=== PATIENT | female | born 1995 | race Caucasian/White ===

== ENCOUNTER 2019-10-18 16:14 | Outpatient (REF) | payer OTHER, SELFPAY ==
[2019-10-18 18:12] LABS: *AMPHETAMINES SCREEN URINE Negative (Negative); *BARBITURATES SCREEN URINE Negative (Negative); *BENZODIAZEPINES SCREEN URINE Negative (Negative); Cannabinoids THC Negative (Negative); Cocaine Screen,Urine Negative (Negative); METHADONE URINE SCREEN Negative (Negative); OPIATES URINE SCREEN Negative (Negative)
[2019-10-18 18:16] LABS: Tricyclic Antidepressants Negative (Negative)
[2019-10-23 10:58] LABS: Buprenorphine Negative
== END 2019-10-18 16:34 ==
LOC: LBN 16:14
PROVIDERS: Visit Provider Obstetrics & Gynecology
DX: Z34.92 Encounter for supervision of normal pregnancy, unspecified, second trimester (principal)
CPT/HCPCS: 80307

== ENCOUNTER 2019-10-24 02:44 | Outpatient (CLI) | payer OTHER, SELFPAY ==
--- NOTE | 2019-10-24 10:56 | DI.US_ITS ---
EXAM: US OB 2-3 TRIMESTER US OB 2-3 TRIMESTER CLINICAL HISTORY: anatomy and review of dates, late care Z34.90 SUPERVISION NORMAL P. anatomy and review of dates, late care Z34.90 SUPERVISION NORMAL P TECHNIQUE: Transabdominal obstetrical ultrasound performed. COMPARISON: No exams were available for comparison FINDINGS: Transabdominal obstetrical ultrasound performed. FINDINGS: Number of fetuses: One. position: Vertex. heart rate: bpm. Placental grade: 2 Placental location: Posterior. No evidence of previa. BIOMETRIC DATA: BPD: 5.9cm HC: 21.4cm AC: 19.5cm FL: 4.0cm Cisterna Magna: 3.3 mm Cerebellum: 2.5 cm EFW: 620 grms 63% Composite Age: 24.5 EDC by US: 02/15/20 Heart Rate: 153BPM Amniotic fluid index: Amount of fluid is within normal limits. ANATOMICAL SURVEY: Four-chambered heart: Unremarkable. LVOT: Unremarkable. RVOT: Unremarkable. Left-sided stomach: Unremarkable. urinary bladder: Unremarkable. Bilateral kidneys: Unremarkable. Three-vessel cord: Unremarkable. Cord insertion: Unremarkable. Umbilical artery velocity: Unremarkable. Posterior fossa:Unremarkable. ventricles: Unremarkable. nose: Unremarkable. lips: Unremarkable. palate: Unremarkable. spine: Unremarkable. Two arms and two legs: Unremarkable. The fetus is in cephalic position. Placenta is anterior. The biometric measurements correspond to 2 3 weeks 0 days. This is consistent with predicted gestational age. No abnormalities are seen. The amount of amniotic fluid appears visually normal. IMPRESSION: survey is within normal limits. DATA REPOSITORY:
[2019-10-24 11:21] LABS: Abs Immature Grans 0.03 k/cumm (0.0-0.09); Absolute Eosinophil Count 0.15 k/cumm (0.0-0.7); Absolute Lymphocyte Count 2.25 k/cumm (1.2-3.4); Absolute Monocyte Count 0.74 k/cumm (0.11-0.7); Absolute Neutrophil Count 8.23 k/cumm (1.2-6.7); Basophils % 0.3; Eosinophils % 1.3; HCT 34.3 % (36.0-46.0); HGB 11.5 g/dL (12.0-15.5); Immature Grans % 0.3 %; Lymphocytes % 19.7; Mean Corp. HGB Concentration 33.5 g/dL (32.0-36.0); Mean Corpuscular Hemoglobin 29.6 pg (27.0-33.0); Mean Corpuscular Volume 88.4 fL (80-95); Mean Platelet Volume 11.3 fL (8.0-11.0); Monocytes % 6.5; Neutrophils % 71.9; Platelet Count 257 x1000/uL (130-400); RBC 3.88 m/cumm (4.00-5.20); RBC Distribution Width 12.8 % (11.7-14.6); White Blood Cell Count 11.44 k/cumm (4.4-10.8)
[2019-10-24 11:23] LABS: Absolute Basophil Count 0.03 k/cumm (0.0-0.2)
[2019-10-24 12:35] LABS: TSH (W/Ref FT4) 2.01 uIU/mL (0.36-3.74)
[2019-10-25 10:33] LABS: Hepatitis C Ab w Rflx HCV PCR Negative (Negative)
[2019-10-25 10:38] LABS: Hepatitis B Surface Ag Negative (Negative)
[2019-10-25 10:40] LABS: HIV-1/2 Ag & Ab Screen Negative (Negative)
[2019-10-25 11:08] LABS: Syphilis Serology (RPR) Negative (Negative)
[2019-10-25 11:31] LABS: Varicella IgG Antibody Positive (See Note)
[2019-10-25 13:58] LABS: Rubella IgG Ab (UVM) Positive (See Note)
== END 2019-10-24 03:04 ==
PROVIDERS: PCP Family Medicine; Visit Provider Obstetrics & Gynecology
DX: Z34.92 Encounter for supervision of normal pregnancy, unspecified, second trimester (principal); Z3A.23 23 weeks gestation of pregnancy
CPT/HCPCS: 36415; 80055; 86787; 86803; 86850; 86900; 86901; 87340; 87389; 76805; 84443; 86592; 86762

== ENCOUNTER 2019-11-15 10:21 | Outpatient (CLI) | payer OTHER, SELFPAY ==
[2019-11-15 11:02] LABS: Glucose,1 Hr (Glucola) 104 mg/dL (80-140)
== END 2019-11-15 10:41 ==
PROVIDERS: PCP Family Medicine; Visit Provider Obstetrics & Gynecology
DX: Z34.92 Encounter for supervision of normal pregnancy, unspecified, second trimester (principal)
CPT/HCPCS: 36415; 82950

== ENCOUNTER 2019-11-29 09:44 | Outpatient (REF) | payer OTHER, SELFPAY ==
--- NOTE | 2019-11-29 09:30 | PAPFT_PTH ---
PATIENT: Reshma Berry LOC: [facility] U#:[id number] AGE/SX: 24/F ROOM: RE11/29/[address]: Eveline Negrete : 1995 BED: DIS: 11/29/2019 SPEC #: [id number] RECD: 11/29/19 12:44 STATUS: KANDY REBernardo #: [id number] JOSEPH: 11/29/19 09:[address]: Eveline Negrete DEPT: [facility] Cytology RECD BY: Coleen Cross ENTERED: 11/29/19 12:44 SP TYPE: PAPFT OTHR DR: Les Vaca Tissues: 1 - CX/ENDOCX FOR PAP SMEARS Procedures: PAP THIN PREP/UVM Screening Comments: [id number]
[2019-12-02 12:47] LABS: Chlamydia Result Negative (Negative); GC Result Negative (Negative)
== END 2019-11-29 10:04 ==
LOC: LBN 09:44
PROVIDERS: PCP Family Medicine; Visit Provider Obstetrics & Gynecology Gynecology
DX: Z34.91 Encounter for supervision of normal pregnancy, unspecified, first trimester (principal); Z11.3 Encounter for screening for infections with a predominantly sexual mode of transmission; Z12.4 Encounter for screening for malignant neoplasm of cervix
CPT/HCPCS: 87491; 87591; 88142

== ENCOUNTER 2020-01-15 19:04 | Outpatient (REF) | payer OTHER, MEDICAID, SELFPAY ==
[2020-01-15 16:55] LABS: *AMPHETAMINES SCREEN URINE Negative (Negative); *BARBITURATES SCREEN URINE Negative (Negative); *BENZODIAZEPINES SCREEN URINE Negative (Negative); Cannabinoids THC Negative (Negative); Cocaine Screen,Urine Negative (Negative); METHADONE URINE SCREEN Negative (Negative); OPIATES URINE SCREEN Negative (Negative)
[2020-01-15 17:01] LABS: Tricyclic Antidepressants Negative (Negative)
[2020-01-23 07:15] LABS: Buprenorphine Negative
== END 2020-01-15 19:24 ==
LOC: LBN 19:04
PROVIDERS: PCP Family Medicine; Visit Provider Obstetrics & Gynecology
DX: Z34.93 Encounter for supervision of normal pregnancy, unspecified, third trimester (principal); Z3A.36 36 weeks gestation of pregnancy
CPT/HCPCS: 80307

== ENCOUNTER 2020-01-24 10:10 | Outpatient (CLI) | payer OTHER, MEDICAID, SELFPAY | END 2020-01-24 10:30 | PROVIDERS: PCP Family Medicine; Visit Provider Obstetrics & Gynecology | DX: Z34.93 Encounter for supervision of normal pregnancy, unspecified, third trimester (principal); Z36.85 Encounter for antenatal screening for Streptococcus B | CPT/HCPCS: 87081 ==

== ENCOUNTER 2020-02-18 08:33 | Outpatient (CLI) | payer OTHER, MEDICAID, SELFPAY | END 2020-02-18 08:53 | PROVIDERS: PCP Family Medicine; Visit Provider Obstetrics & Gynecology Gynecology | DX: O48.0 Post-term pregnancy (principal); Z3A.40 40 weeks gestation of pregnancy | CPT/HCPCS: 59025 ==

== ENCOUNTER 2020-02-21 09:26 | Outpatient (CLI) | payer OTHER, MEDICAID, SELFPAY ==
[2020-02-21 21:51] LABS: COVID-19 RT-PCR UVMMC Result Negative (Negative)
== END 2020-02-21 09:46 ==
PROVIDERS: PCP Family Medicine; Visit Provider Obstetrics & Gynecology
DX: Z11.59 Encounter for screening for other viral diseases (principal)
CPT/HCPCS: U0003

== ENCOUNTER 2020-02-22 07:21 | Inpatient (IN) | payer OTHER, MEDICAID, SELFPAY ==
[2020-02-22 08:21] LABS: HGB 12.7 g/dL (12.0-15.5); Mean Corp. HGB Concentration 34.3 g/dL (32.0-36.0); Mean Corpuscular Hemoglobin 29.6 pg (27.0-33.0); Mean Corpuscular Volume 86.2 fL (80-95); Mean Platelet Volume 12.3 fL (8.0-11.0); Platelet Count 236 x1000/uL (130-400); RBC 4.29 m/cumm (4.00-5.20); RBC Distribution Width 13.4 % (11.7-14.6); White Blood Cell Count 18.15 k/cumm (4.4-10.8)
[2020-02-22] MEDS: Oxytocin/Normal Saline 30 UNITS/500 ML BAG IV (09:30)
[2020-02-22] MEDS: Lactated Ringers 1,000 ML 125 ML IV (09:30)
[2020-02-22] MEDS: FentaNYL/ROPIvacaine 2 mcg/ml and 0.1% 200 ML CADD Cassette EP (11:10)
[2020-02-22] MEDS: Terbutaline 1 MG/ML VIAL (12:00)
[2020-02-22] MEDS: Lactated Ringers 250 ML 500 ML IV (12:00)
[2020-02-22 12:30] VITALS: BP 89/49
[2020-02-22] MEDS: ePHEDrine 50 MG/ML VIAL IVP ×2 (12:30→12:40)
[2020-02-22 12:40] VITALS: BP 113/45
[2020-02-22 13:00] VITALS: BP 103/52
[2020-02-22 13:10] VITALS: BP 128/65
[2020-02-22] MEDS: Sodium Citrate 30 ML CUP PO (16:00)
[2020-02-22] MEDS: AZITHROMYCIN 500 MG in Normal Saline 250 ML 250 MG IVPB (16:00)
[2020-02-22] MEDS: ceFAZolin 1 GM/50 ML BAG IVPB (16:18)
[2020-02-22] MEDS: Azithromycin 500 MG VIAL (16:25)
[2020-02-22] MEDS: Bupivacaine 0.25% Pres-Free 30 ML VIAL (17:08)
--- NOTE | 2020-02-22 18:22 | HPE_ITS ---
Assessment and Plan Assessment and plan (1) Post-dates : Status: Acute Assessment and plan: Plan to admit for induction of labor with postdates. The patient does appear to be in early labor on admission and we will augment with Pitocin. We discussed pain management options morning and the patient does desire an epidural later in the course of her labor. GBS is negative. COVID screening is negative as well. History of Present Illness History of Present Illness Chief Complaint: Postdates Narrative: 24-year-old G1, P0 at 41 weeks gestation was admitted for postdates induction of labor. The patient did present today with regular contractions which were mild. On initial examination her cervix was 4 cm in dilatation, based and -2 station. She denied leakage of fluid. has been uncomplicated today. Review of Systems All systems reviewed & are unremarkable except as noted in HPI and below PFSH Social History Smoking/Tobacco Use Status: Former Tobacco Use Tobacco: How many years used: 5 Quit status: considering quitting Second Hand Exposure: Yes Counseling given: provider counseling, support program and counseling >3 minutes Smoking risk assessment performed?: Yes Alcohol Intake: former Drug use: Never Household members: significant other, family and other Details: Allison x8 years. 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 Works [employer] part-time. Sexually active: Yes Do you think of yourself as: straight/heterosexual Helmet use: Yes Do you feel safe at home: No Do you feel safe in your relationship?: Yes Victim of physical abuse: No Victim of emotional abuse: No Victim of sexual abuse: No Additional Social history: Part-time job works at the [employer] of the [employer] is in [place] Female Reproductive History Menstrual Age of Menarche: 12 control method: other History History 1 Para 0 Hx # Term Pregnancies Multiple births Hx # Pregnancies Ectopic pregnancies AB induced Hx Number of Living Children AB spontaneous Meds Home Medications and Allergies Home Medications Medication Instructions Recorded Confirmed Type prenat.vits,nathanael,[id number] 2 tab PO DAILY tab 04/03/20 06/27/20 History Allergies Allergy/AdvReac Type Severity Reaction Status Date / Time No Known Allergies Allergy Verified 02/22/20 08:15 Exam Other: Cervix /2 Results Labs Result diagrams: 02/22/20 08:05 Labs: Laboratory Results - last 24 hr 02/22/20 02/22/20 08:05 08:05 WBC 18.15 H RBC 4.29 Hgb 12.7 Hct 37.0 MCV 86.2 MCH 29.6 MCHC 34.3 RDW 13.4 Plt Count 236 MPV 12.3 H Patient ABO/Rh A Positive Antibody Screen Negative Last Vital Signs BP 128/65 02/22/20 13:10 COVID-19 Screening In the past 14 days, have you traveled outside of [place]?: YES Recent travel in the [facility] within the last 14 days?: No Recent out of the country travel within the last 14 days?: No Exposure or possible exposure to illness during travel?: No
--- NOTE | 2020-02-22 18:24 | PGE_ITS ---
Date of Service Date of service: 02/22/20 Time of Service: 18:24 Assessment and Plan Assessment and plan (1) Post-dates : Status: Acute (2) Non-reassuring heart rate or rhythm affecting management of fetus: Status: Acute (3) Arrested labor: Status: Acute Assessment and plan: The decision was made to proceed with section. The patient was counseled on risks related to surgery including hemorrhage, infection and injury to other organ such as bowel bladder. All que stions were answered to the patient's satisfaction and consent for surgery was obtained. Subjective Subjective Interval history since last seen: Late Entry Note The patient was admitted this morning for postdates induction of labor. The patient did present in early labor and was started on Pitocin augmentation. Her initial cervical exam was 4 cm in dilatation and 90% effaced on admission. Patient is urvashi and strong and painful once Pitocin was added. She was given an epidural for anesthesia. She did have some heart rate decelerations which were felt to be related to hypotension and was provided ephedrine. Intermittently she continued to have variable decelerations and pe riodically decelerations. She progressed rapidly from 4 cm to 9 cm and eventually complete cervical dilatation by 1340. At this time heart rate deceleration did continue. Pitocin had been discontinued earlier and the patient's contractions through most of the day were spontaneous. Amniotomy was performed at 12:39 PM and heart rate decelerations continued. Second stage with expulsive efforts began after complete cervical dilatation. The patient did progress to +1 station and heart rate decelerations continued. The decision was made to attempt a forceps assisted vaginal delivery. position was noted to be right occiput posterior. Given the first blade due to patient discomfort. Anesthesia was contacted and bedside a bolus to her epidural achieving better pain control. A second attempt at forceps was made at 1545 and I was unable to achieve a proper application and after several attempts at application forceps were abandoned. No traction attempts were made. Due to continued heart rate decelerations and lack of descent the patient was consented for section and taken to the operating room. Please refer to operative note for details. Objective Objective Clinical Data: Abnormal lab results 02/22/20 Range/Units 08:05 WBC 18.15 H (4.4-10.8) k/cumm MPV 12.3 H (8.0-11.0) fL Vital Signs Blood Pressure 128/65 02/22/20 13:10 Intake & Output 02/21/20 02/22/20 02/22/20 23:59 11:59 23:59 Intake Total 1300 / 1300 Output Total 800 / 800 Balance 500 / 500 Weight 219 lb Intake: IV 1300 / 1300 Output: Estimated Blood Loss 800 / 800 Laboratory Results WBC 18.15 k/cumm (4.4-10.8) H 02/22/20 08:05 RBC 4.29 m/cumm (4.00-5.20) 02/22/20 08:05 Hgb 12.7 g/dL (12.0-15.5) 02/22/20 08:05 Hct 37.0 % (36.0-46.0) 02/22/20 08:05 MCV 86.2 fL (80-95) 02/22/20 08:05 MCH 29.6 pg (27.0-33.0) 02/22/20 08:05 MCHC 34.3 g/dL (32.0-36.0) 02/22/20 08:05 RDW 13.4 % (11.7-14.6) 02/22/20 08:05 Plt Count 236 x1000/uL (130-400) 02/22/20 08:05 MPV 12.3 fL (8.0-11.0) H 02/22/20 08:05 Patient ABO/Rh A Positive 02/22/20 08:05 Antibody Screen Negative 02/22/20 08:05
[2020-02-22] MEDS: fentaNYL 100 MCG/2 ML VIAL (18:30)
--- NOTE | 2020-02-22 18:30 | ROE_ITS ---
Date of service: 02/22/20 Time of Service: 18:30 Operative Note Operative Note DATE OF PROCEDURE: 02/22/20 PRE-OP DIAGNOSIS: 1. 41 weeks gestation 2. Nonreassuring heart status 3. Arrest of descent POST-OP DIAGNOSIS: same PROCEDURE: Primary low transverse section SURGEON: Godfrey Lutz ANESTHESIA: epidural ESTIMATED BLOOD LOSS: 800 PATHOLOGY: none sent COMPLICATIONS: None Patient was transported to: floor Patient's condition: stable Findings: 1. LBM fetus in OP position. Difficult extraction Procedure Description: The patient was taken to the operating room and after adequate epidural anesthesia was obtained the patient had been placed in supine position with a left lateral tilt. The patient was prepped and draped in the usual sterile manner. A Pfannenstiel incision was made with a 10 blade scalpel and sharp dissection was carried down to the underlying layer fascia. The fascia was incised in the midline with a scalpel and the incision was carried laterally in either direction with Ferrer scissors. The superior and inferior aspects of the fascial ut incision were dissected off the underlying layer of rectus muscles using both blunt sharp dissection. The rectus muscles were divided in the midline along the linea alba peritoneum was entered bluntly. The peritoneal incision was extended superiorly and inferiorly with the Bovie cautery. The Sam retractor was placed with good visualization of the lower uterine segment. The vesicouterine flap was tented up with pickups and incised in the midline with Metzenbaum scissors and the incision was carried laterally in either direction with the Metzenbaum scissors. The bladder flap was then developed digitally. The lower uterine segment was incised in a transverse manner with a scalpel and the incision was carried laterally in either direction via stretch. The was found in cephalic presentation, occiput posterior position. The infant was in a resting position deep in the pelvis and extraction was difficult. Thick meconium stained fluid was noted. The was delivered atraumatically. The cord was clamped and cut and the was handed off to the awaiting marketing content manager. The placenta was manually extracted. The uterus was cleared of all clots and debris. The hysterotomy was closed with a running lock stitch of #1 chromic. A second beginning layer of #1 chromic in a Lambert stitch was used to complete the repair. Excellent hemostasis was noted. The vesicouterine flap was reapproximated with a running stitch of 3-0 Vicryl. The peritoneum was closed with a running stitch of 2-0 Vicryl. The subfascial space was thoroughly inspected and a single bleeder at the superior and midline end of the fascial dissection was ligated with a [id number] suture of 2-0 Vicryl. Excellent hemostasis was noted. The fascia was closed with a running stitch of 0 Vicryl. The subcutaneous tissues were closed with interrupted sutures of 3-0 Vicryl and the skin was closed with a running subcuticular stitch of 4-0 Monocryl. Dermabond was applied. The procedure was concluded at this point. Sponge, lap and needle counts were correct at the conclusion of the procedure. The patient was transferred to the floor in stable condition.
--- NOTE | 2020-02-22 18:40 | PDOC.ANES ---
Date of service: 02/22/20 Time of Service: 18:40 Anesthesia Note Report Anesthesia Note: Reshma is complaining of moderate to severe abdominal incisional burning/pain. Discussed with Dr. Lutz and decision made to give 2mg Morphine PF and 100mcg Fentanyl through her epidural catheter. This was completed and flushed with PF Saline. Narcan orders given for respiratory depression as well as pruritis. Epidural catheter then removed with blue tip intact. Pt. tolerated this well with no concerns. RN Will note dosing in MAR as given by anesthesia.
[2020-02-22] MEDS: diphenhydrAMINE 50 MG/ML VIAL (18:41)
[2020-02-22] MEDS: Normal Saline Flush 10 ML SYR (18:42)
[2020-02-22] MEDS: Ketorolac 30 MG/ML VIAL IVP (22:56)
[2020-02-23] MEDS: Lactated Ringers 1,000 ML 120 ML IV (00:02)
[2020-02-23] MEDS: Ketorolac 30 MG/ML VIAL IVP ×3 (04:52→21:15)
[2020-02-23 07:16] LABS: HGB 10.5 g/dL (12.0-15.5); Mean Corp. HGB Concentration 33.9 g/dL (32.0-36.0); Mean Corpuscular Hemoglobin 29.6 pg (27.0-33.0); Mean Corpuscular Volume 87.3 fL (80-95); Mean Platelet Volume 11.7 fL (8.0-11.0); Platelet Count 191 x1000/uL (130-400); RBC 3.55 m/cumm (4.00-5.20); RBC Distribution Width 13.8 % (11.7-14.6); White Blood Cell Count 18.12 k/cumm (4.4-10.8)
--- NOTE | 2020-02-23 09:53 | W.PM.PROGNOT ---
Date of Service Date of service: 02/23/20 Time of Service: 09:53 Assessment and Plan Assessment and plan (1) (normal spontaneous vaginal delivery): Status: Acute Assessment and plan: S/p at term. Plan for discharge home this morning. Will follow up in the clinic in 2 weeks and plan for 2 hour GTT at 6 weeks . Subjective Subjective Interval history since last seen: Doing well today. No problems or concerns. She has no pain. Lochia is minimal. Objective Objective Clinical Data: Abnormal lab results 02/23/20 Range/Units 06:55 WBC 18.12 H (4.4-10.8) k/cumm RBC 3.55 L (4.00-5.20) m/cumm Hgb 10.5 L D (12.0-15.5) g/dL Hct 31.0 L (36.0-46.0) % MPV 11.7 H (8.0-11.0) fL Vital Signs Blood Pressure 128/65 02/22/20 13:10 Pain Level 3 02/22/20 23:56 Intake & Output 02/22/20 02/22/20 02/23/20 11:59 23:59 11:59 Intake Total 1550 / 1550 964 / 964 Output Total 800 / 800 Balance 750 / 750 964 / 964 Weight 219 lb Intake: IV 1550 / 1550 964 / 964 Output: Estimated Blood Loss 800 / 800 Laboratory Results WBC 18.12 k/cumm (4.4-10.8) H 02/23/20 06:55 RBC 3.55 m/cumm (4.00-5.20) L 02/23/20 06:55 Hgb 10.5 g/dL (12.0-15.5) L D 02/23/20 06:55 Hct 31.0 % (36.0-46.0) L 02/23/20 06:55 MCV 87.3 fL (80-95) 02/23/20 06:55 MCH 29.6 pg (27.0-33.0) 02/23/20 06:55 MCHC 33.9 g/dL (32.0-36.0) 02/23/20 06:55 RDW 13.8 % (11.7-14.6) 02/23/20 06:55 Plt Count 191 x1000/uL (130-400) 02/23/20 06:55 MPV 11.7 fL (8.0-11.0) H 02/23/20 06:55 Patient ABO/Rh A Positive 02/22/20 08:05 Antibody Screen Negative 02/22/20 08:05
--- NOTE | 2020-02-23 10:43 | W.PM.PROGNOT ---
Date of Service Date of service: 02/23/20 Time of Service: 10:43 Assessment and Plan Assessment and plan (1) S/P section: Status: Acute Assessment and plan: Doing well. Discontinue sandoval catheter this morning. Encourage ambulation. Continue routine postop care. Subjective Subjective Interval history since last seen: Doing well. Pain well controlled Not yet ambulatory. Tolerating regular diet. Objective Objective Clinical Data: Abnormal lab results 02/23/20 Range/Units 06:55 WBC 18.12 H (4.4-10.8) k/cumm RBC 3.55 L (4.00-5.20) m/cumm Hgb 10.5 L D (12.0-15.5) g/dL Hct 31.0 L (36.0-46.0) % MPV 11.7 H (8.0-11.0) fL Vital Signs Blood Pressure 128/65 02/22/20 13:10 Pain Level 3 02/22/20 23:56 Intake & Output 02/22/20 02/22/20 02/23/20 11:59 23:59 11:59 Intake Total 1550 / 1550 964 / 964 Output Total 800 / 800 Balance 750 / 750 964 / 964 Weight 219 lb Intake: IV 1550 / 1550 964 / 964 Output: Estimated Blood Loss 800 / 800 Laboratory Results WBC 18.12 k/cumm (4.4-10.8) H 02/23/20 06:55 RBC 3.55 m/cumm (4.00-5.20) L 02/23/20 06:55 Hgb 10.5 g/dL (12.0-15.5) L D 02/23/20 06:55 Hct 31.0 % (36.0-46.0) L 02/23/20 06:55 MCV 87.3 fL (80-95) 02/23/20 06:55 MCH 29.6 pg (27.0-33.0) 02/23/20 06:55 MCHC 33.9 g/dL (32.0-36.0) 02/23/20 06:55 RDW 13.8 % (11.7-14.6) 02/23/20 06:55 Plt Count 191 x1000/uL (130-400) 02/23/20 06:55 MPV 11.7 fL (8.0-11.0) H 02/23/20 06:55 Patient ABO/Rh A Positive 02/22/20 08:05 Antibody Screen Negative 02/22/20 08:05
[2020-02-24] MEDS: Acetaminophen 325 MG TAB 650 MG PO ×2 (10:00→18:13)
[2020-02-24] MEDS: Docusate Sodium 100 MG CAP PO ×2 (10:00→18:14)
[2020-02-24] MEDS: Ibuprofen 600 MG TAB PO (22:24)
--- NOTE | 2020-02-25 10:01 | W.PM.PROGNOT ---
Date of Service Date of service: 02/25/20 Time of Service: 10:01 Assessment and Plan Assessment and plan (1) S/P section: Status: Acute Assessment and plan: POD 3 s/p primary section for arrest of descent. Ok to discharge home today. Follow up in the clinic in one week. Subjective Subjective Interval history since last seen: Doing well. Pain well controlled with Tylenol and advil alone. Ambulatory Tolerating regular diet. No nausea or vomiting Objective Objective Clinical Data: Vital Signs Blood Pressure 128/65 02/22/20 13:10 Pain Level 4 02/24/20 22:24 Laboratory Results WBC 18.12 k/cumm (4.4-10.8) H 02/23/20 06:55 RBC 3.55 m/cumm (4.00-5.20) L 02/23/20 06:55 Hgb 10.5 g/dL (12.0-15.5) L D 02/23/20 06:55 Hct 31.0 % (36.0-46.0) L 02/23/20 06:55 MCV 87.3 fL (80-95) 02/23/20 06:55 MCH 29.6 pg (27.0-33.0) 02/23/20 06:55 MCHC 33.9 g/dL (32.0-36.0) 02/23/20 06:55 RDW 13.8 % (11.7-14.6) 02/23/20 06:55 Plt Count 191 x1000/uL (130-400) 02/23/20 06:55 MPV 11.7 fL (8.0-11.0) H 02/23/20 06:55 Patient ABO/Rh A Positive 02/22/20 08:05 Antibody Screen Negative 02/22/20 08:05
[2020-02-25] MEDS: Ibuprofen 600 MG TAB PO (13:33)
[2020-02-25] MEDS: Docusate Sodium 100 MG CAP PO (13:34)
[2020-02-25] MEDS: Acetaminophen 325 MG TAB 650 MG PO (13:35)
== END 2020-02-25 14:20 | disposition home or self-care (01) | DRG 788 ==
PROVIDERS: Admitting Provider Obstetrics & Gynecology; PCP Family Medicine; Visit Provider Obstetrics & Gynecology
PROC: 10D00Z1 Extraction of Products of Conception, Low, Open Approach (ICD-10-PCS; CPT 59514; principal; 2020-02-22 16:20)
DX: O48.0 Post-term pregnancy (principal); Z37.0 Single live birth; O76 Abnormality in fetal heart rate and rhythm complicating labor and delivery; O66.5 Attempted application of vacuum extractor and forceps; O62.1 Secondary uterine inertia; O63.1 Prolonged second stage (of labor); I95.9 Hypotension, unspecified; O77.0 Labor and delivery complicated by meconium in amniotic fluid; Z3A.41 41 weeks gestation of pregnancy; Z67.10 Type A blood, Rh positive
CPT/HCPCS: 59514; 36415; 85027; 86850; 86900; 86901; 99223; 99233; J0456; J0690; J1200; J1885; J2405; J3010

== ENCOUNTER 2021-02-02 03:48 | Outpatient (CLI) | payer MEDICAID, SELFPAY ==
[2021-02-02 10:15] LABS: HCT 43.8 % (36.0-46.0); HGB 14.5 g/dL (11.2-15.7); MCH 28.9 pg (27.0-33.0); MCHC 33.1 % (32.0-36.0); MCV 87.4 fL (80-95); MPV 10.7 fL (8.0-11.0); Platelet Count 295 10^3/uL (130-400); RBC 5.01 10^6/uL (3.93-5.22); RDW 11.8 % (11.7-14.6); RDW-SD 37.8 fL; WBC 7.11 10^3/uL (4.4-10.8)
[2021-02-02 11:01] LABS: Source Nasal/Nares
[2021-02-02 11:10] LABS: Chloride 103 mmol/L (98-107); Potassium 4.8 mmol/L (3.5-5.1); Sodium 137 mmol/L (136-145)
[2021-02-02 11:23] LABS: HCG Qual (Serum) Negative
[2021-02-02 12:54] LABS: COVID-19 PCR Negative (Negative)
== END 2021-02-02 03:49 | disposition home or self-care (01) ==
LOC: LBO 03:48
PROVIDERS: PCP Family Medicine; Visit Provider Obstetrics & Gynecology Gynecology
DX: O90.0 Disruption of cesarean delivery wound (principal); Z20.822 Contact with and (suspected) exposure to COVID-19; Z01.818 Encounter for other preprocedural examination; Z01.812 Encounter for preprocedural laboratory examination
CPT/HCPCS: 36415; 80051; 85027; 86850; 86900; 86901; 87635; 84703

== ENCOUNTER 2021-02-04 11:24 | Day surgery (SDC) | payer MEDICAID, SELFPAY ==
[2021-02-04] VITALS (7 sets, daily range): BP systolic 74–115; BP diastolic 33–64; PULSE 54–81; RESP 16–18; TEMP 36–36.5; O2SAT 96–99; BMI 36.3
[2021-02-04] MEDS: Lactated Ringers 1,000 ML 125 ML IV (11:49)
--- NOTE | 2021-02-04 12:31 | W.ANESPRE ---
General Info Date of Service Date Performed: 02/04/21 Height: 5 ft 5 in Weight: 98.9 kg Body Mass Index (BMI): 36.3 Surgical Procedure: Operation Date: 02/04/21 13:10 Proposed Procedures Side Surgeon p excision of skin sinus at previsous c section scar Eveline Negrete MD Meds Allergies and Home Medications Allergies Allergy/AdvReac Type Severity Reaction Status Date / Time No Known Allergies Allergy Verified 02/04/21 11:41 Home Medication Medication Instructions Recorded norethindrone (contraceptive) 0.35 0.35 mg PO DAILY #84 tab 03/03/20 mg tablet Current Visit Medications: Current Medications Generic Name Dose Route Start Last Admin Trade Name Freq PRN Reason Stop Dose Admin Ringer's Solution 1,000 mls @ 125 mls/hr 02/04/21 06:00 02/04/21 11:49 IV 03/05/21 23:59 125 mls/hr INFUSION NELSY Administration Cefazolin Sodium/Dextrose 2 gm in 50 mls @ 100 mls/hr 02/04/21 06:00 Ancef Duplex IVPB 02/04/21 16:00 PREOP NELSY IV Miscellaneous Supplies 1 each 02/04/21 06:00 Iv Access IV 03/05/21 23:59 DIRECTED NELSY Sodium Chloride 0 ml 02/04/21 06:00 Normal Saline Flush 10 Ml Syr IV 03/05/21 23:59 PRN PRN Sodium Chloride 0 ml 02/04/21 06:00 Normal Saline 10 Ml Vial IJ 03/05/21 23:59 DIRECTED PRN Sterile Water 0 ml 02/04/21 06:00 Water,Injection,Sterile 10 Ml Vial IJ 03/05/21 23:59 DIRECTED PRN PFSH Active Problems Active Problems: Problem Status Onset Code Separation of wound with drainage, O90.0 S/P section Z98.891 Contraception Z30.9 History of bunionectomy of right great toe Z98.890 Medical History Medical History Contraception Progesterone only pill after vaginal delivery. Currently breast-feeding. Patient was instructed to change to a combination OCP if she were to stop breast-feeding or begin supplementing with formula or food Separation of wound with drainage, Surgical History Surgical History History of bunionectomy of right great toe S/P section 02/22/2020. LT CS 4-second stage arrest. Shereen Spaulding 7 pounds 3 ounces Tobacco Smoking/Tobacco Use Status: Former Tobacco Use Tobacco: How many years used: 5 Passive smoking exposure: Yes Quit Status: considering quitting Second hand exposure: Yes Counseling given: provider counseling, support program and counseling >3 minutes Alcohol Alcohol Intake: current Alcohol intake frequency: holidays/special occasions only Substance Use Substance use: Never Prental History History 1 Para 0 Hx # Term Pregnancies Multiple births Hx # Pregnancies Ectopic pregnancies AB induced Hx Number of Living Children AB spontaneous Past Pregnancies Del. Date GA/Weeks # Outcome Route Wgt Sex Labor Lgth Anesthesia Location [facility] 02/22/20 41 No Successful [address] Delivery Date: 02/22/20 Second stage greater than 2 hours. named Jasson. Eveline Negrete Vital Signs and Lab Results Vital Signs Most Recent Vital Signs in EMR: Most Recent Vital Signs Temp Pulse Resp BP Pulse Ox 36.5 C 59 L 16 113/64 99 02/04/21 11:26 02/04/21 11:26 02/04/21 11:26 02/04/21 11:26 02/04/21 11:26 Lab Results Blood Type / Crossmatch: Patient ABO/Rh A Positive 02/02/21 09:48 02/02/21 Antibody Screen Negative 02/02/21 09:48 02/02/21 Complete Blood Count: White Blood Count 7.11 10^3/uL (4.4-10.8) 02/02/21 09:48 02/02/21 Red Blood Count 5.01 10^6/uL (3.93-5.22) 02/02/21 09:48 02/02/21 Hemoglobin 14.5 g/dL (11.2-15.7) 02/02/21 09:48 02/02/21 Hematocrit 43.8 % (36.0-46.0) 02/02/21 09:48 02/02/21 Platelet Count 295 10^3/uL (130-400) 02/02/21 09:48 02/02/21 Complete Metabolic Panel: Sodium Level 137 mmol/L (136-145) 02/02/21 09:48 02/02/21 Potassium Level 4.8 mmol/L (3.5-5.1) 02/02/21 09:48 02/02/21 Chloride Level 103 mmol/L (98-107) 02/02/21 09:48 02/02/21 Carbon Dioxide Level 29.0 mmol/L (21.0-32.0) 02/02/21 09:48 02/02/21 Liver Function Panel: No Data to Display Coagulation Panel: No Data to Display Cardiac Panel: No Data to Display Arterial Blood Gas: No Data to Display Venous Blood Gas: No Data to Display Pancreas Panel: No Data to Display Thyroid Panel: No Data to Display Infectious Disease: Coronavirus (COVID-19)(PCR) Negative (Negative) 02/02/21 09:58 02/02/21 Coronavirus 2019 Source Nasal/nares 02/02/21 09:58 02/02/21 Blood Cultures: No Data to Display Toxicology Panel: No Data to Display Panel: Serum HCG, Qualitative Negative 02/02/21 09:48 02/02/21 Anesthesia Assessment and Plan Anesthesia History Personal History: No History of Anesthesia Complications Family History: No Family History of Anesthesia Complications Exercise Tolerance Exercise Tolerance: Metabolic Equivalents>4 Pertinent Negatives Pertinent Negatives: No Symptoms of GERD, No Major Cardiovascular Symptoms or Complaints, No Major Pulmonary Symptoms or Complaints and No History of CVA/TIA Cardiac & Pulmonary Exam Cardiac Exam: Normal S1/S2 Heart Sounds Pulmonary Exam: Clear Bilateral Breath Sounds and Rales Present Airway Exam Known Difficult Airway: No Mallampati Class: 2 Mouth Opening: Normal (> 3cm) Thyromental Distance: Greater than 3 cm Neck Range of Motion: Full ROM Neck Circumference: Normal Teeth Condition: Normal Dentition ASA Classification ASA Score: ASA 1 Emergency Case?: No NPO Status NPO Status: NPO Clears >2 hours, Solids >8 hours Status Status: Negative HCG Anesthesia Plan Resuscitation Status: Full Code Anesthesia Technique: General Anesthesia Airway Planned: Natural Airway Monitors Used: Standard Monitors Preoperative Comments:: Spoke to pt about LMA backup
[2021-02-04] MEDS: ceFAZolin 2 GM/50 ML BAG IVPB (12:50)
--- NOTE | 2021-02-04 13:20 | SKI_PTH ---
PATIENT: Reshma Berry LOC: [facility] U#:[id number] AGE/SX: 25/F ROOM: RE02/04/[address]: Eveline Negrete : 1995 BED: DIS: 02/04/2021 SPEC #: [id number] RECD: 02/04/21 17:24 STATUS: KANDY REBernardo #: [id number] JOSEPH: 02/04/21 13:[address]: Eveline Negrete DEPT: Surgical Specimen RECD BY: Coleen Cross ENTERED: 02/04/21 17:27 SP TYPE: CHETNA CLARK DR: Les Vaca Tissues: 1 - SKIN BIOPSY(SHAVE/PUNCH) Procedures: SKIN LEVEL 4 Comments: [id number]
--- NOTE | 2021-02-04 13:45 | W.PM.DSUDISC ---
Discharge Plan Disposition Patient Disposition: HOME Condition: Good Discharge Details Attending Provider: Eveline Negrete Primary Care Provider: Les Vaca Home Meds and New Rx's Prescriptions: No Action norethindrone (contraceptive) [Ortho Micronor] 0.35 mg tablet 0.35 mg PO DAILY Qty: 84 RF: 3 Discharge Instructions Additional Instructions: You have salma on your skin. Keep the area dry, no showering until the salma are removed next week. You may remove the dressing from the hospital in 24hrs. Reapply a large bandaid over the salma to keep the salma from catching. You may use Ibuprofen 600mg every 6hrs and Acetaminophen 325mg every 4 hours for pain. No heavy lifting until the salma are removed next week. Make an appointment with Dr. Negrete on 2020 to remove the salma. Stand Alone Forms: DSU Post Gynecology Surgery Activity:: Activity as Tolerated Remove Dressings/Wound Care:: 24 hours Shower/Bathe:: Cover Diet:: As Tolerated Discharge Orders Discharge Orders: Discharge Order (Routine); Ordered 02/04/21 Ordered By: Eveline Negrete DS: Diagnosis Discharge Diagnosis (1) Separation of wound with drainage, : Status: Acute (2) S/P scar revision: Status: Acute
--- NOTE | 2021-02-04 13:52 | W.ANESPOSTOP ---
Postoperative Evaluation Date, Time and Location Date Performed: 02/04/21 Time Performed: 13:52 Patient Location: PACU Vital Signs Most Recent Imported Vital Signs: Most Recent Vital Signs Temp Pulse Resp BP Pulse Ox 36.2 C L 65 18 105/51 L 97 02/04/21 13:46 02/04/21 13:46 02/04/21 13:46 02/04/21 13:46 02/04/21 13:46 Pain Score Most Recent Pain Score: Most Recent Pain Score Pain Level 0 02/04/21 13:46 Assessment Mental Status: Awake (Alert & Oriented to Patient Baseline) Airway and Respiratory Function: Patent airway with normal (patient baseline) respiratory exam Cardiovascular Function: Hemodynamically Stable Hydration Status: Adequately Hydrated Nausea & Vomiting: No Nausea or Vomiting Pain: Pt. Denies Any Pain Peripheral Nerve Block: Patient did not receive a nerve block
--- NOTE | 2021-02-04 21:09 | ROE_ITS ---
Date of service: 02/04/21 Time of Service: 21:09 Operative Note Operative Note DATE OF PROCEDURE: 02/04/21 PRE-OP DIAGNOSIS: delayed opening and drainage from Pfannenstiel incision POST-OP DIAGNOSIS: same PROCEDURE: revision of Pfannenstiel skin incision SURGEON: Eveline Negrete ANESTHESIA TYPE: General:No Airway Refer to Anesthesia Record ESTIMATED BLOOD LOSS: 0 PATHOLOGY: other (subcutaneous tissue for pathology) COMPLICATIONS: None Patient was transported to: PACU Patient's condition: stable Indications: 25yo female who presented to [facility] in November 2020 with pinpoint opening in L lateral margin of Pfannenstiel skin inscision after an uncomplicated LTCS on 02/22/2020. Post course was uncomplicated until interuption in skin incision 11/2020 with continued leakage of small amount of serrouns sanguinous drainage. Findings: Two pinpoint openings along Pfannestiel skin incision approximately 6cm medial to L lateral margin of scar. No sinus tract or foreign material visible in subcutaneous layer beneath openings. 1cm x 2cm of firm subcutaneous adipose tissue palpated in excised and sent to pathology. Procedure Description: Patient was brought to the operating room where she was placed in the dorsal supine position and general anesthesia was administered. She was prepped and draped in the usual sterile fashion. Surgical timeout was performed. She received IV Ancef prior to skin incision. Subcutaneous tissue at the surgical site was infiltrated with quarter percent Marcaine without epinephrine. An elliptical incision approximately 4 cm in length and 1 cm in width was made using a scalpel. The skin was dissected off of the subcutaneous tissue with a scalpel. The subcutaneous tissue was then palpated and using a Bovie electrocautery through layers of the subcutaneous tissue were dissected until the thickened rope-like tissue palpated beneath the sinus opening was removed. Bovie electrocautery was used to treat any bleeding areas. Subcutaneous tissue was reapproximated with a 2-0 Vicryl suture in interrupted fashion. Skin was reapproximated and closed with salma. There was satisfactory cosmetic result. Patient was awakened from anesthesia and transported recovery area in stable condition. All sponge lap needle counts were correct x2.
== END 2021-02-04 14:45 | disposition home or self-care (01) ==
PROVIDERS: PCP Family Medicine; Visit Provider Obstetrics & Gynecology Gynecology
PROC: (CPT 11404; principal; 2021-02-04 13:00)
DX: L76.82 Other postprocedural complications of skin and subcutaneous tissue (principal); L73.8 Other specified follicular disorders; Y83.8 Other surgical procedures as the cause of abnormal reaction of the patient, or of later complication, without mention of misadventure at the time of the procedure
CPT/HCPCS: 11404; 12032; 88305; J0690; J1100; J1885; J2001; J2405

== ENCOUNTER 2021-08-05 14:55 | Outpatient (REF) | payer MEDICAID, SELFPAY ==
[2021-08-07 10:12] LABS: COVID-19 RT-PCR UVMMC Result Negative (Negative)
== END 2021-08-05 14:56 | disposition home or self-care (01) ==
LOC: LBN 14:55
PROVIDERS: PCP Family Medicine; Visit Provider Nurse Practitioner Family
DX: Z20.822 Contact with and (suspected) exposure to COVID-19 (principal); J06.9 Acute upper respiratory infection, unspecified
CPT/HCPCS: U0003

== ENCOUNTER 2022-03-03 17:38 | Outpatient (REF) | payer MEDICAID, SELFPAY | END 2022-03-03 17:39 | disposition home or self-care (01) | LOC: LBN 17:38 | PROVIDERS: PCP Family Medicine; Visit Provider Physician Assistant Medical | DX: L02.414 Cutaneous abscess of left upper limb (principal) | CPT/HCPCS: 87077; 87070; 87186; 87205 ==

== ENCOUNTER 2022-08-30 11:46 | Outpatient (CLI) | payer MEDICAID, SELFPAY ==
[2022-08-30 12:13] LABS: HCG Quant, Pregnancy 166 mIU/mL (1-3)
== END 2022-08-30 11:47 | disposition home or self-care (01) ==
LOC: LBO 11:49
PROVIDERS: PCP Family Medicine; Visit Provider Obstetrics & Gynecology
DX: O26.851 Spotting complicating pregnancy, first trimester (principal)
CPT/HCPCS: 36415; 84702

== ENCOUNTER 2022-09-01 02:27 | Outpatient (CLI) | payer MEDICAID, SELFPAY ==
[2022-09-01 16:49] LABS: HCG Quant, Pregnancy 43 mIU/mL (1-3)
== END 2022-09-01 02:28 | disposition home or self-care (01) ==
LOC: LBO 02:27
PROVIDERS: Obstetrics & Gynecology; PCP Family Medicine; Visit Provider Family Medicine
DX: O26.851 Spotting complicating pregnancy, first trimester (principal)
CPT/HCPCS: 36415; 84702

== ENCOUNTER 2022-09-07 03:23 | Outpatient (CLI) | payer MEDICAID, SELFPAY ==
[2022-09-07 15:06] LABS: HCG Quant, Pregnancy 4 mIU/mL (1-3)
== END 2022-09-07 03:24 | disposition home or self-care (01) ==
PROVIDERS: Referring Provider Obstetrics & Gynecology; Visit Provider Obstetrics & Gynecology
DX: O26.851 Spotting complicating pregnancy, first trimester (principal)
CPT/HCPCS: 36415; 84702

== ENCOUNTER 2023-04-04 03:58 | Outpatient (CLI) | payer MEDICAID, SELFPAY ==
[2023-04-04 11:18] LABS: Panorama Kit Sent via Fed Ex
[2023-04-04 11:23] LABS: Abs Immature Grans 0.03 10^3/uL (0.0-0.06); Absolute Basophil Count 0.04 10^3/uL (0.0-0.2); Absolute Eosinophil Count 0.13 10^3/uL (0.0-0.7); Absolute Lymphocyte Count 2.36 10^3/uL (1.2-3.4); Absolute Neutrophil Count 5.79 10^3/uL (1.2-6.7); Basophils % 0.4; Eosinophils % 1.4; HCT 39.1 % (36.0-46.0); HGB 13.4 g/dL (11.2-15.7); Immature Grans % 0.3; Lymphocytes % 25.8; MCH 28.9 pg (27.0-33.0); MCHC 34.3 % (32.0-36.0); MCV 84 fL (80-95); MPV 10.9 fL (8.0-11.0); Monocytes % 8.7; Neutrophils % 63.4; Platelet Count 260 10^3/uL (130-400); RBC 4.63 10^6/uL (3.93-5.22); RDW 12.2 % (11.7-14.6); RDW-SD 37.1 fL; WBC 9.15 10^3/uL (4.4-10.8)
[2023-04-04 11:40] LABS: Glucose,1 Hr (Glucola) 87 mg/dL (80-140)
[2023-04-04 11:54] LABS: TSH (W/Ref FT4) 1.65 uIU/mL (0.36-3.74)
[2023-04-05 08:56] LABS: Hepatitis C Ab w Rflx HCV PCR Negative (Negative)
[2023-04-05 09:10] LABS: Hepatitis B Surface Ag Negative (Negative)
[2023-04-05 09:36] LABS: HIV-1/2 Ag & Ab Screen Negative (Negative)
[2023-04-05 09:41] LABS: Varicella IgG Antibody Positive (See Note)
[2023-04-05 11:20] LABS: Rubella IgG Ab (UVM) Equivocal (See Note)
[2023-04-05 22:33] LABS: Syphilis IgG w/Reflex Nonreactive (Nonreactive)
== END 2023-04-04 03:59 | disposition home or self-care (01) ==
LOC: LBO 03:58
PROVIDERS: Visit Provider Advanced Practice Midwife
DX: Z34.81 Encounter for supervision of other normal pregnancy, first trimester; Z3A.00 Weeks of gestation of pregnancy not specified
CPT/HCPCS: 36415; 82950; 86787; 86803; 86850; 86900; 86901; 87340; 87389; 84443; 85025; 86762; 86780

== ENCOUNTER 2023-04-04 11:32 | Outpatient (REF) | payer MEDICAID, SELFPAY ==
--- NOTE | 2023-04-04 10:20 | PAPFT_PTH ---
PATIENT: Reshma Berry LOC: [facility]HELLE U#:[id number] AGE/SX: 27/F ROOM: RE04/04/[address]: Katherine Bowers CNM : 1995 BED: DIS: 04/04/2023 SPEC #: [id number] RECD: 04/04/23 13:00 STATUS: KANDY REBernardo #: [id number] JOSEPH: 04/04/23 10:[address]: Katherine Bowers DEPT: [facility] Cytology RECD BY: Coleen Cross Tissues: 1 - CX/ENDOCX FOR PAP SMEARS Procedures: PAP THIN PREP/UVM Screening Comments: [id number] (CHLAMYDIA/GC)
[2023-04-04 13:04] LABS: *AMPHETAMINES SCREEN URINE Negative (Negative); *BARBITURATES SCREEN URINE Negative (Negative); *BENZODIAZEPINES SCREEN URINE Negative (Negative); Cannabinoids THC Negative (Negative); Cocaine Screen,Urine Negative (Negative); METHADONE URINE SCREEN Negative (Negative); OPIATES URINE SCREEN Negative (Negative)
[2023-04-04 13:07] LABS: Tricyclic Antidepressants Negative (Negative)
[2023-04-05 14:47] LABS: Chlamydia Result Negative (Negative); GC Result Negative (Negative)
[2023-04-07 12:19] LABS: Buprenorphine Negative ng/mL (Cutoff: 5.0); Norbuprenorphine Negative ng/mL (Cutoff: 2.5)
== END 2023-04-04 11:33 | disposition home or self-care (01) ==
LOC: LBN 11:32
PROVIDERS: Visit Provider Advanced Practice Midwife
DX: Z34.91 Encounter for supervision of normal pregnancy, unspecified, first trimester (principal); Z12.4 Encounter for screening for malignant neoplasm of cervix
CPT/HCPCS: 80307; 80348; 87491; 87591; 88142; 87086

== ENCOUNTER → 2023-06-02 00:12 | Outpatient (CLI) | payer MEDICAID, SELFPAY ==
--- NOTE | 2023-06-02 07:15 | DI.US_ITS ---
Exam(s) US OB 2-3 TRIMESTER EXAM: US OB 2-3 TRIMESTER CLINICAL HISTORY: Morphology,z34.91. TECHNIQUE: Transabdominal obstetrical ultrasound performed. COMPARISON: US POCUS EXAM from 03/09/2023 US POCUS EXAM from 04/04/2023 FINDINGS: Number of fetuses: One. position: Vertex. Placental grade: 0 Placental location: Posterior. No evidence of previa. BIOMETRIC DATA: BPD: 45mm = 19+ 5 weeks HC: 171mm = 19 +5 weeks AC: 145mm = 19+ 6 weeks FL: 32mm = 19 +6 weeks Cisterna Magna: 6 mm Cerebellum: 1.9 cm EFW: 313 grms 49% Composite Age: 19 + 6 weeks EDC by US: October 21 Heart Rate: 151BPM Amniotic fluid : Amount of fluid is within normal limits. ANATOMICAL SURVEY: Four-chambered heart: Unremarkable. LVOT: Unremarkable. RVOT: Unremarkable. Left-sided stomach: Unremarkable. urinary bladder: Unremarkable. Bilateral kidneys: Unremarkable. Three-vessel cord: Unremarkable. Cord insertion: Unremarkable. Posterior fossa:Unremarkable. ventricles: Unremarkable. nose: Unremarkable. lips: Unremarkable. palate: Unremarkable. spine: Unremarkable. Two arms and two legs: Unremarkable. IMPRESSION: 1. Single live intrauterine gestation with biometric measurements corresponding to 19 weeks 6 days.. 2. Normal anatomic survey. DATA REPOSITORY:
== END ==
PROVIDERS: Visit Provider Advanced Practice Midwife
DX: Z34.92 Encounter for supervision of normal pregnancy, unspecified, second trimester (principal)
CPT/HCPCS: 76805

== ENCOUNTER 2023-08-04 03:24 | Outpatient (CLI) | payer MEDICAID, SELFPAY ==
[2023-08-04 11:17] LABS: Abs Immature Grans 0.03 10^3/uL (0.0-0.06); Absolute Basophil Count 0.04 10^3/uL (0.0-0.2); Absolute Eosinophil Count 0.11 10^3/uL (0.0-0.7); Absolute Lymphocyte Count 1.98 10^3/uL (1.2-3.4); Absolute Monocyte Count 0.43 10^3/uL (0.1-0.8); Absolute Neutrophil Count 6.69 10^3/uL (1.2-6.7); Basophils % 0.4; Eosinophils % 1.2; HCT 34.8 % (36.0-46.0); HGB 11.8 g/dL (11.2-15.7); Immature Grans % 0.3; Lymphocytes % 21.3; MCH 28.9 pg (27.0-33.0); MCHC 33.9 % (32.0-36.0); MCV 85 fL (80-95); MPV 11.3 fL (8.0-11.0); Monocytes % 4.6; Neutrophils % 72.2; Platelet Count 237 10^3/uL (130-400); RBC 4.09 10^6/uL (3.93-5.22); RDW 12.7 % (11.7-14.6); RDW-SD 38.9 fL; WBC 9.28 10^3/uL (4.4-10.8)
[2023-08-04 11:34] LABS: Glucose,1 Hr (Glucola) 122 mg/dL (80-140)
== END 2023-08-04 03:25 | disposition home or self-care (01) ==
LOC: LBO 03:24
PROVIDERS: Visit Provider Obstetrics & Gynecology
DX: Z34.93 Encounter for supervision of normal pregnancy, unspecified, third trimester (principal)
CPT/HCPCS: 36415; 82950; 85025

== ENCOUNTER 2023-09-29 11:07 | Outpatient (REF) | payer MEDICAID, SELFPAY | END 2023-09-29 11:08 | disposition home or self-care (01) | LOC: LBN 11:07 | PROVIDERS: PCP Obstetrics & Gynecology; Visit Provider Obstetrics & Gynecology | DX: Z34.93 Encounter for supervision of normal pregnancy, unspecified, third trimester (principal); Z36.85 Encounter for antenatal screening for Streptococcus B; Z3A.36 36 weeks gestation of pregnancy | CPT/HCPCS: 87081 ==

== ENCOUNTER 2023-10-16 04:49 | Outpatient (CLI) | payer MEDICAID, SELFPAY | END 2023-10-16 04:50 | disposition home or self-care (01) | LOC: LBO 04:49 | PROVIDERS: PCP Obstetrics & Gynecology; Visit Provider Obstetrics & Gynecology | DX: Z01.818 Encounter for other preprocedural examination (principal) | CPT/HCPCS: 36415; 86850; 86900; 86901; 85025 ==

== ENCOUNTER 2023-10-18 06:00 | Inpatient (IN) | payer MEDICAID, SELFPAY ==
[2023-10-16 10:38] LABS: Abs Immature Grans 0.06 10^3/uL (0.0-0.06); Absolute Basophil Count 0.07 10^3/uL (0.0-0.2); Absolute Eosinophil Count 0.18 10^3/uL (0.0-0.7); Absolute Lymphocyte Count 2.21 10^3/uL (1.2-3.4); Absolute Monocyte Count 0.67 10^3/uL (0.1-0.8); Absolute Neutrophil Count 8.61 10^3/uL (1.2-6.7); Basophils % 0.6; Eosinophils % 1.5; HCT 35.9 % (36.0-46.0); HGB 12.2 g/dL (11.2-15.7); Immature Grans % 0.5; Lymphocytes % 18.7; MCH 28.8 pg (27.0-33.0); MCV 85 fL (80-95); MPV 11.8 fL (8.0-11.0); Monocytes % 5.7; Platelet Count 247 10^3/uL (130-400); RBC 4.24 10^6/uL (3.93-5.22); RDW 13.6 % (11.7-14.6); RDW-SD 42.1 fL
--- NOTE | 2023-10-17 18:39 | ANES.PREOP_ITS ---
General Info Date of Service Date Performed: 10/18/23 Height: 5 ft 4 in Weight: 97.5 kg Body Mass Index (BMI): 36.8 Surgical Procedure: Operation Date: 10/18/23 07:40 Proposed Procedure Side Surgeon p Repeat Section, Possible Hysterectomy Karely Araujo DO Meds Allergies and Home Medications Allergies Allergy/AdvReac Type Severity Reaction Status Date / Time No Known Allergies Allergy Verified 10/16/23 14:43 Home Medication Medication Instructions Recorded vits no.126-ferrous fum 1 tab PO DAILY 04/04/23 28 mg iron-folic acid 800 mcg tablet (Classic ) Current Visit Medications: Current Medications Generic Name Dose Route Start Last Admin Trade Name Freq PRN Reason Stop Dose Admin Citric Acid/Sodium Citrate 30 ml 10/18/23 06:00 Sodium Citrate 30 Ml Cup PO PREOP NELSY Cefazolin Sodium/Dextrose 2 gm in 50 mls @ 100 mls/hr 10/18/23 06:30 Ancef Duplex IVPB PREOP NELSY Azithromycin 500 mg/ Sodium 250 mls @ 250 mls/hr 10/18/23 06:30 Chloride IVPB PREOP NELSY Ringer's Solution 1,000 mls @ 200 mls/hr 10/18/23 06:00 IV INFUSION NELSY IV Miscellaneous Supplies 1 each 10/18/23 06:00 Iv Access IV DIRECTED NELSY Sodium Chloride 0 ml 10/18/23 06:00 Normal Saline Flush 10 Ml Syr IVP PRN PRN Sodium Chloride 0 ml 10/18/23 18:00 Normal Saline Flush 10 Ml Syr IVP BID NELSY Sodium Chloride 0 ml 10/18/23 06:00 Normal Saline 10 Ml Vial IJ DIRECTED PRN PFSH Active Problems Active Problems: Problem Status Onset Code Rubella non-immune status, antepartum O09.899, Z28.39 Z34.90 test positive Z32.01 Surgical History Surgical History History of bunionectomy of right great toe S/P section 02/22/2020. LT CS 4-second stage arrest. M. Jasson 7 pounds 3 ounces S/P scar revision 01/2021. Excision of sinus tract. Tobacco Smoking/Tobacco Use Status: Former Tobacco Use Passive smoking exposure: Yes Second hand exposure: Yes Counseling given: provider counseling, support program and counseling >3 minutes Alcohol Alcohol Intake: current Alcohol intake frequency: holidays/special occasions only Substance Use Substance use: Never Prental History History 3 Para 1 Hx # Term Pregnancies 1 Multiple births 0 Hx # Pregnancies 0 Ectopic pregnancies 0 AB induced 0 Hx Number of Living Children 1 AB spontaneous 1 Past Pregnancies Del. Date GA/Weeks # Preg Succ Route Wgt Sex Labor Lgth Anesth esia Location [facility] 02/22/20 41 No Yes 3260.195 g Male [address] Lutz 08/29/22 4 No Delivery Date: 02/22/20 Last Updated by: Pepper Sewell IOL postdates, arrest of descent in 2nd stage with decels, persistent OP, Jasson Delivery Date: 08/29/22 Last Updated by: Katherine Bowers, PHILIPPE SAB no complications Vital Signs and Lab Results Vital Signs Most Recent Vital Signs in EMR: Temp Pulse Resp BP Pulse Ox 36.7 C 76 18 126/60 98 10/18/23 06:26 10/18/23 06:26 10/18/23 06:26 10/18/23 06:26 10/18/23 06:26 Lab Results Blood Type / Crossmatch: Patient ABO/Rh A Positive 10/16/23 Antibody Screen NEGATIVE 10/16/23 Complete Blood Count: White Blood Count 11.80 10^3/uL (4.4-10.8) H 10/16/23 10:24 Red Blood Count 4.24 10^6/uL (3.93-5.22) 10/16/23 10:24 Hemoglobin 12.2 g/dL (11.2-15.7) 10/16/23 10:24 Hematocrit 35.9 % (36.0-46.0) L 10/16/23 10:24 Platelet Count 247 10^3/uL (130-400) 10/16/23 10:24 Complete Metabolic Panel: No Data to Display Liver Function Panel: No Data to Display Coagulation Panel: No Data to Display Cardiac Panel: No Data to Display Arterial Blood Gas: No Data to Display Venous Blood Gas: No Data to Display Pancreas Panel: No Data to Display Thyroid Panel: No Data to Display Infectious Disease: No Data to Display Blood Cultures: No Data to Display Toxicology Panel: No Data to Display Panel: No Data to Display Anesthesia Assessment and Plan Anesthesia History Personal History: No History of Anesthesia Complications Family History: No Family History of Anesthesia Complications Exercise Tolerance Exercise Tolerance: Metabolic Equivalents>4 Cardiac & Pulmonary Exam Cardiac Exam: Normal S1/S2 Heart Sounds Pulmonary Exam: Clear Bilateral Breath Sounds Implantable Cardiac Device Does patient have a Pacemaker or an ICD?: No Airway Exam Known Difficult Airway: No Mallampati Class: 2 Mouth Opening: Normal (> 3cm) Thyromental Distance: Greater than 3 cm Neck Range of Motion: Full ROM Neck Circumference: Normal Teeth Condition: Normal Dentition ASA Classification ASA Score: ASA 2 Emergency Case?: No NPO Status NPO Status: NPO Clears >2 hours, Solids >8 hours Status Status: Confirmed Anesthesia Plan Resuscitation Status: Full Code Anesthesia Technique: Spinal Anesthesia Airway Planned: Natural Airway Monitors Used: Standard Monitors Preoperative Comments:: 28 yo female for repeat c section. Sig PMHx: former smoker, no major. Previous Anes: - debridement, prop/dex, natural airway, no issues. - epidural --> section, 3 attempt epidural, KAVIN 7. loaded with chloro, phenyl<400mcg>.
[2023-10-18] VITALS (222 sets, daily range): BP systolic 81–174; BP diastolic 46–74; PULSE 68–141; RESP 14–36; TEMP 36.6–37.1; O2SAT 95–100; BMI 36.8
[2023-10-18] MEDS: AZITHROMYCIN 500 MG in Normal Saline 250 ML 250 MG IVPB (06:51)
[2023-10-18] MEDS: Lactated Ringers 1,000 ML 30 ML IV ×2 (07:39→19:40)
[2023-10-18] MEDS: ceFAZolin 2 GM/50 ML BAG IVPB (07:39)
--- NOTE | 2023-10-18 08:15 | PLAC_PTH ---
PATIENT: Reshma Berry LOC: OBS U#:[id number] AGE/SX: 28/F ROOM: OBS.305 RE10/18/[address]: Karely Araujo DO : 1995 BED: A DIS: 10/21/2023 SPEC #: [id number] RECD: 10/18/23 12:47 STATUS: KANDY REQ #: [id number] JOSEPH: 10/18/23 08:[address]: Karely Araujo DEPT: Surgical Specimen RECD BY: Coleen Cross Tissues: 1 - PLACENTA (3RD TRIMESTER) Procedures: IMMUNOPEROXIDASE STAIN GROSS AND MICRO LEVEL 5 Comments: [id number]
[2023-10-18] MEDS: Bupivacaine 0.25% Pres-Free 30 ML VIAL ×2 (08:29→21:36)
--- NOTE | 2023-10-18 08:35 | W.PM.OBCSECT ---
Date of service: 10/18/23 Time of Service: 08:35 Operative Note Operative Note Delivery Method: Scheduled and Repeat Previous LT Incision: Yes DATE OF PROCEDURE: 10/18/23 PRE-OP DIAGNOSES: at 39 weeks and 3/7, declines trial of labor, prior sect POST-OP DIAGNOSES: same PROCEDURE: Repeat low-transverse section SURGEON: Karely Araujo Maintenance Shop Welder: Eveline Negrete Anesthesia: local and spinal Estimated blood loss (mL): 300 Pathology: other (Placenta) Complications: None Patient was transported to: floor Patient's condition: stable Indications: Prior section, declines trial of labor, at 39 weeks and 3 days Findings: Normal-appearing tubes, ovaries, uterus. Delivery of a viable male with Apgars 8 and 9. Procedure Description: After full informed consent was obtained and IV had been established, patient was taken the operating suite. She received 2 g of Ancef and 500 mg of Zithromax for surgical site infection prophylaxis. Pneumatic compression stockings were in place and functioning for DVT prophylaxis. She was placed in the seated position and spinal anesthesia administered per anesthesia. She was then placed in the dorsal supine position with leftward tilt and prepped and draped in the usual sterile fashion. Vaginal preparation had been performed. Reyes catheter was inserted for continuous bladder drainage. Quarter percent Marcaine was used to infiltrate at the previous surgical incision site. A Pfannenstiel skin incision was made and carried down to the underlying fascia. The fascia was then nicked in the midline and fascial and it incision extended laterally. The rectus muscles were identified and in the midline. The peritoneum was identified tented up and entered sharply. The peritoneal incision was then extended superiorly and inferiorly and the DeLee bladder blade was inserted. There were noted to be minimal adhesions of the bladder to the lower uterine segment which were elevated, and meticulously dissected. The vesicouterine peritoneum was incised and the bladder was pushed well below the lower uterine segment. Bladder blade was then reinserted. A low transverse uterine incision was made with a scalpel and extended bluntly laterally. There was artificial rupture of membranes for clear fluid. The vertex was delivered through the incision atraumatically. Shoulders followed with ease. There was no evidence of nuchal cord. Three-vessel cord was noted clamped x 2 and cut and the infant was handed off to the waiting pediatric team. At this point cord blood sample was obtained. A segment reserved for cord gases if necessary. The placenta was then manually expressed from the uterus and the uterus exteriorized and cleared of all clot and debris. The uterine incision was then closed using 0 Monocryl suture in a 2 layer closure first being running locked, second being imbricating. The uterine incision was inspected and noted to be hemostatic. Ovaries and tubes had appeared normal throughout the procedure. The uterus was returned to the abdomen. The abdomen was irrigated with copious amounts of normal saline and the uterine incision reinspected and noted to be hemostatic. At this point the fascial incision was closed using 0 Vicryl suture in a running fashion. Subcutaneous tissue irrigated with copious months of normal saline and noted to be hemostatic. Subcu space reapproximated with 3-0 Vicryl suture and the skin edge reapproximated with 4-0 undyed Monocryl in a subcuticular fashion. Steri-Strips and sterile dressing were placed. Reyes catheter was in place draining clear yellow urine as the patient was taken to the floor for recovery. Complications: None apparent EBL: 300 mL Fluids: Crystalloid per anesthesia Urine output: 100 cc clear yellow urine Pathology: Placenta for examination. Gender: Male
--- NOTE | 2023-10-18 09:50 | W.ANESPOSTOP ---
Postoperative Evaluation Date, Time and Location Date Performed: 10/18/23 Time Performed: 08:58 Patient Location: Obstetrics Vital Signs Most Recent Imported Vital Signs: Most Recent Vital Signs Temp Pulse Resp BP Pulse Ox 36.7 C 76 18 116/54 L 97 10/18/23 06:26 10/18/23 09:48 10/18/23 06:26 10/18/23 09:37 10/18/23 09:48 Pain Score Most Recent Pain Score: Most Recent Pain Score Pain Level 0 10/18/23 06:26 Assessment Mental Status: Awake (Alert & Oriented to Patient Baseline) Airway and Respiratory Function: Patent airway with normal (patient baseline) respiratory exam Cardiovascular Function: Hemodynamically Stable Hydration Status: Adequately Hydrated Nausea & Vomiting: No Nausea or Vomiting Pain: Other (spinal still in some effect. ) Peripheral Nerve Block: Patient did not receive a nerve block
[2023-10-18] MEDS: oxyCODONE 5 mg/Acetaminophen 325 mg TAB PO ×3 (10:11→18:02)
[2023-10-18] MEDS: Ketorolac 30 MG/ML VIAL 15 MG IVP (15:21)
[2023-10-18] MEDS: Lactated Ringers 1,000 ML 1000 ML IV (15:28)
[2023-10-18] MEDS: Ondansetron 4 MG/2 ML VIAL IVP (16:53)
[2023-10-18] MEDS: Lactated Ringers 1,000 ML 150 ML IV (17:49)
[2023-10-18 18:33] LABS: HCT 24.7 % (36.0-46.0); MCH 28.9 pg (27.0-33.0); MCHC 33.6 % (32.0-36.0); MCV 86 fL (80-95); Platelet Count 227 10^3/uL (130-400); RBC 2.87 10^6/uL (3.93-5.22); RDW 13.4 % (11.7-14.6); RDW-SD 41.9 fL; WBC 19.13 10^3/uL (4.4-10.8)
[2023-10-18 18:44] LABS: ALT 25 U/L (14-59); AST 12 U/L (15-37); Alkaline Phosphatase 97 U/L (46-116); Anion Gap 9.4 mmol/L (3-11); BUN 8 mg/dL (7-18); Bilirubin, Total 0.4 mg/dL (0.2-1.0); CO2 20.6 mmol/L (21.0-32.0); CREATININE 0.9 mg/dL (0.55-1.02); Calcium 7.9 mg/dL (8.5-10.1); Chloride 100 mmol/L (98-107); Estimated GFR 89.86 (mL/min/1.73m2); Glucose 188 mg/dL (74-106); Sodium 130 mmol/L (136-145); Total Protein 5.2 g/dL (6.4-8.2)
[2023-10-18 18:48] LABS: HGB 8.3 g/dL (11.2-15.7)
--- NOTE | 2023-10-18 19:12 | W.PM.HP.N ---
Date of service: 10/18/23 Time of Service: 19:12 Assessment and Plan Assessment and plan (1) Status post repeat low transverse section: Status: Acute (2) Intra abdominal hemorrhage: Status: Acute Assessment and plan: Patient has had a change in vital signs. She has appears to be acute abdomen secondary to postoperative hemorrhage. I consented her for an exploratory laparotomy with intention of controlling postop bleeding. She was counseled that she may require hysterectomy. 2 units packed red blood cells have been ordered as well as 1 unit of platelets. OR staff notified patient be transferred to the operating room soon as possible. Informed consent was obtained her questions were answered History of Present Illness History of Present Illness Chief Complaint: Abdominal pain, postop day repeat low-transverse delivery, anemia Narrative: Patient is a 28-year-old female who underwent a repeat low-transverse delivery earlier today at 39 W3D EGA. She delivered a viable male . Intraoperative course was uncomplicated estimated blood loss 250 cc. Approximately 3 hours ago she began to experience abdominal pain shoulder discomfort and complained of feeling unwell. Her blood pressure in the 96/53 range pulse baseline 93 with elevations of over 100 bpm with semifollows position. Oxygen saturation 100% on room air. She was given a total of 1000 cc of Lactated Ringer's IV bolus without an appreciable increase in urinary output. I was called to evaluate the patient and ordered a stat H&H with her hemoglobin having decreased from approximately 12 to 8. I informed patient that she should return to the OR for exploratory laparotomy for intra-abdominal bleeding. Review of Systems All systems reviewed & are unremarkable except as noted in HPI and below PFSH All Active Problems (Updated 10/18/23 @ 19:21 by Eveline Negrete MD) Intra abdominal hemorrhage (Acute) Status post repeat low transverse section (Acute) Rubella non-immune status, antepartum (Acute) (Acute) Surgical History History of bunionectomy of right great toe S/P section 02/22/2020. LT CS 4-second stage arrest. M. Jasson 7 pounds 3 ounces S/P scar revision 01/2021. Excision of sinus tract. Social History Smoking/Tobacco Use Status: Former Tobacco Use Quit Date: 09/28/19 Tobacco: How many years used: 5 Quit status: considering quitting Second Hand Exposure: Yes Counseling given: provider counseling, support program and counseling >3 minutes Smoking risk assessment performed?: Yes Alcohol Intake: current Alcohol Intake frequency: holidays/special occasions only Drug use: Never Household members: significant other, family, children and other Details: BF-Moris x8 years. S-Jasson. 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 Sexually active: Yes Do you think of yourself as: straight/heterosexual Helmet use: Yes Do you feel safe at home: Yes Do you feel safe in your relationship?: Yes Victim of physical abuse: No Victim of emotional abuse: No Victim of sexual abuse: No Female Reproductive History Menstrual Age of Menarche: 12 control method: other History History 3 Para 1 Hx # Term Pregnancies 1 Multiple births 0 Hx # Pregnancies 0 Ectopic pregnancies 0 AB induced 0 Hx Number of Living Children 1 AB spontaneous 1 Past Pregnancies Del. Date GA/Weeks # Preg Succ Route Wgt Sex Labor Lgth Anesthesia Location Prov [facility] 02/22/20 41 No Yes 7 lb 3 oz Male [address] Lutz 08/29/22 4 No Delivery Date: 02/22/20 Last Updated by: Pepper Sewell IOL postdates, arrest of descent in 2nd stage with decels, persistent OP, Jasson Delivery Date: 08/29/22 Last Updated by: Katherine Bowers CNM SAB no complications Meds Allergies and Home Medications Allergies Allergy/AdvReac Type Severity Reaction Status Date / Time No Known Allergies Allergy Verified 10/16/23 14:43 Home Medications Medication Instructions Recorded Confirmed Type vits no.126-ferrous fum 1 tab PO DAILY 04/04/23 10/16/23 History 28 mg iron-folic acid 800 mcg tablet (Classic ) Exam Narrative Exam Narrative: sitting in Semi-Mcconnell's position complaining of abdominal pain. Const General: in distress and anxious Orientation: alert, awake and oriented x3 Neck Neck: normal visual inspection Chest Chest: normal inspection of the chest Resp Effort & Inspection: normal respiratory effort Auscultation: clear to auscultation bilaterally Cardio Rate: tachycardic Rhythm: regular rhythm Pulses: normal peripheral pulses GI Inspection: no abdominal wall ecchymosis, distended and scar (Covered sterile dressing) Palpation: firm, no masses and tender Percussion: dullness to percussion Auscultation: hypoactive bowel sounds General: other (Clear dark ya urine in the Reyes catheter) Back/Spine/Pelvis Back: CVA tenderness Skin General skin exam: no rashes or lesions noted and pallor Extrem General: normal to inspection and full ROM Psych Appearance: grossly normal Mental Status: mental status grossly normal Mood: anxious mood Results Labs 10/18/23 18:20 10/18/23 18:20 Labs: Laboratory Results - last 24 hr 10/18/23 18:20 WBC 19.13 H RBC 2.87 L Hgb 8.3 L D Hct 24.7 L MCV 86 MCH 28.9 MCHC 33.6 RDW 13.4 Plt Count 227 MPV 12.0 H Sodium 130 L Potassium 4.0 Chloride 100 Carbon Dioxide 20.6 L Anion Gap 9.4 BUN 8 Creatinine 0.9 Est GFR (CKD-EPI 2020) 89.86 Glucose 188 H Calcium 7.9 L Total Bilirubin 0.4 AST 12 L ALT 25 Alkaline Phosphatase 97 Total Protein 5.2 L Albumin 2.0 L Last Vital Signs Temp 98.3 F 10/18/23 18:53 Pulse 93 H 10/18/23 19:08 Resp 16 10/18/23 15:26 BP 96/53 L 10/18/23 19:08 Pulse Ox 100 10/18/23 19:03 Time Spent Time spent with Patient: 40-54 minutes Time was spent: preparing to see the patient(eg.review tests), obtaining and/or reviewing separately otained hiistory and ordering medications,tests, procedures
[2023-10-18] MEDS: Tranexamic Acid 1,000 MG/10 ML VIAL 1000 MG ×2 (19:45→20:30)
[2023-10-18 20:39] LABS: BE -7 mmol/L (-2-3); HCO3 20 mmol/L (22-26); pCO2 44 mmHg (35-45); pH 7.27 (7.35-7.45); pO2 172 mmHg (80-105)
[2023-10-18 20:42] LABS: Abs Immature Grans 0.14 10^3/uL (0.0-0.06); Absolute Basophil Count 0.03 10^3/uL (0.0-0.2); Absolute Lymphocyte Count 1.53 10^3/uL (1.2-3.4); Absolute Monocyte Count 1.21 10^3/uL (0.1-0.8); Basophils % 0.2; Eosinophils % 0.1; HCT 29.2 % (36.0-46.0); HGB 9.9 g/dL (11.2-15.7); Immature Grans % 0.9; Lymphocytes % 9.5; MCH 28.7 pg (27.0-33.0); MCHC 33.9 % (32.0-36.0); MCV 85 fL (80-95); Monocytes % 7.5; Neutrophils % 81.8; Platelet Count 162 10^3/uL (130-400); RBC 3.45 10^6/uL (3.93-5.22); RDW-SD 46.2 fL; WBC 16.14 10^3/uL (4.4-10.8)
[2023-10-18 20:43] LABS: Absolute Eosinophil Count 0.02 10^3/uL (0.0-0.7)
[2023-10-18 20:45] LABS: sO2 > 99 % (95-98)
[2023-10-18 20:56] LABS: PTT Activated 24.9 sec (23.6-32.8); Prothrombin Time 10.3 sec (9.1-11.1)
[2023-10-18 20:58] LABS: ALT 19 U/L (14-59); AST 12 U/L (15-37); Albumin 1.6 g/dL (3.4-5.0); Alkaline Phosphatase 73 U/L (46-116); Anion Gap 10.2 mmol/L (3-11); BUN 8 mg/dL (7-18); Bilirubin, Total 0.3 mg/dL (0.2-1.0); CO2 19.8 mmol/L (21.0-32.0); CREATININE 0.8 mg/dL (0.55-1.02); Calcium 7.9 mg/dL (8.5-10.1); Chloride 101 mmol/L (98-107); Glucose 172 mg/dL (74-106); Potassium 5.2 mmol/L (3.5-5.1); Sodium 131 mmol/L (136-145); Total Protein 4.2 g/dL (6.4-8.2)
--- NOTE | 2023-10-18 21:16 | NUR.NOTE ---
Addendum entered by Coral Sosa RN 10/18/23 21:30: 1600 Dr Foster notified of pt reporting nausea. Zofran ordered and given. No relief of shoulder pain and Blood pressure not improved after [address] Cano notified, Labs Ordered and drawn. responded to bedside at 1830 and decision to return to OR. OR notified at 1900 and Pt in PACU at 1913. Original Note: Nursing Note: 1500 pt attempted to stand at bedside but reported not feeling strong enough. Pt place supine and BPs cycled q 15min. 1600 pt began reporting shoulder pain.
--- NOTE | 2023-10-18 21:52 | W.PM.OP ---
Date of service: 10/18/23 Time of Service: 21:52 Operative Note Operative Note DATE OF PROCEDURE: 10/18/23 PRE-OP DIAGNOSIS: Hemorrhagic shock POST-OP DIAGNOSIS: other (Hemorrhagic shock with extraperitoneal hematoma) PROCEDURE: Reopening of recent section incision, evacuation of extraperitoneal hematoma, suture ligation of uterine hematoma SURGEON: Karely Araujo ASSISTING SURGEON: Philip Gill TRANSFER CAR OPERATOR DRIER: Eveline Negrete Refer to Anesthesia Record ESTIMATED BLOOD LOSS: 300 PATHOLOGY: other (Placenta) Patient was transported to: ICU Patient's condition: critical Procedure Description: I was paged to the operating room to assist Dr. Araujo. On my arrival, I felt that the patient was on the operating room table, with an open Pfannenstiel incision. Anesthesia had established intravenous access and there was ongoing resuscitation with blood products and favorable hemodynamic response. Dr. Araujo provided brief pertinent history, describing section earlier in the day, by deteriorating hemodynamics through the late part of the afternoon and evening. She was brought back to the operating room for concern of bleeding. The Pfannenstiel incision had been opened, and there was evidence of extraperitoneal hematoma. The hematoma seem to track along the right side of the pelvic floor and sidewall. There was a modest amount of hemoperitoneum, but a majority of the bleeding seem to be within the extraperitoneal space. We examined the uterine closure. There was a little bit of hematoma along the inferior aspect of the right side. Upper portion of the uterus was pink and well-perfused, without any signs of hematoma above the incision. The uterus was gently eviscerated, and the posterior uterine wall appeared normal and healthy, and I saw no evidence of any significant peritoneal hematoma, or major hematoma within the cul-de-sac. The uterus was then returned to its normal anatomic position, and careful examination of the rectus and pelvic sidewalls was conducted. There was some evidence of evacuated hematoma along the lower rectus muscles with the right side stained a little more than the left. There was also some signs of narrowing of the inferior epigastric vein on the right side as it dissected down along the back wall of the rectus muscle towards the external iliac vein. There was no obvious bleeding, but given the adjacent hematoma, I did ligate the right-sided inferior epigastric venous complex. The artery appeared normal and healthy. As I continue to examining the lateral aspect of the rectus muscle towards the transversus abdominis, the extraperitoneal hematoma was more obvious. It appeared mostly focused in the preperitoneal space adjacent to the broad ligament. I was able to palpate the external iliac arterial system which felt normal. Hematoma was well away from this. We then turned our attention back to the uterine incision, and the became more convincing that the hematoma was arising from the inferior aspect of the anterior uterine wall along the right side of the incisional closure. Dr. Araujo suture-ligated this area. Next, we irrigated the field, and packed the lower portion of the pelvis along the uterus with combat gauze. Patient remained hemodynamically stable. After approximately 10 minutes we removed this packing. There was no active or ongoing bleeding. Hematoma was not increasing in size. At that point, there did not seem to be any benefit from any further exploration, as this was well away from the iliac vascular system, the ureter, and any of the intraperitoneal structures. Dr. Araujo closed the Pfannenstiel incision with the assistance of Dr. Negrete, and I assisted with application of a ervin negative pressure wound dressing. Further details of this operation can be found under the formal dictation by Dr. Araujo.
--- NOTE | 2023-10-18 22:06 | W.ANESVAS ---
Central Venous Line Placement Date Performed: 10/18/23 Procedure Time: 20:10 Procedure Location: Operating Room Requesting Provider: Laureano Jasso Standard Monitors Applied: ECG, Blood Pressure and SpO2 Pt. Position: Supine Timeout Performed: No Sedation Given (Indicate Dose Given): No Sedation given Patient Mental Status: Performed under general anesthesia Sterility: Hand Hygiene, Surgical Cap, Surgical Mask, Sterile Gloves and Chlorhexidine Laterality: Right Insertion Site: Subclavian Central Line Type: 8.5 Icelandic and Introducer Insertion Procedure: Vessel accessed with catheter over needle, catheter advanced, Guidewire placed with ease, Extension tubing fills with blood, then empties easily with gravity, Dermatotomy (skin nathanael) made with scalpel, Dilator placed without resistance, Introducer/Catheter placed without resistance and Guidewire removed Dressing: Tegaderm Applied and Sutured in Place Catheter Depth at Skin (cm): 0 Placement Confirmation: Urgently Used, all ports flush with venous blood return noted Ultrasound: Other (no probe cover. ) Number of Attempts (See previous attempts in note section): 1 Procedure Tolerated: No Complications Procedure Outcome: Successful Procedure Comment: Line placed during MTP, dirty line. Once blood running, site cath, rewiped with CHG. Performed By: Laureano Jasso Arterial Line Placement Date Performed: 10/18/23 Procedure Time: 20:20 Procedure Location: Operating Room Requesting Provider: Laureano Jasso Timeout Performed: No Sedation Given (Indicate Dose Given): No Sedation given Patient Mental Status: Performed under general anesthesia Sterility: Hand Hygiene, Surgical Cap, Surgical Mask, Sterile Gloves and Chlorhexidine Laterality: Right Insertion Site: Radial Arterial Line Catheter: 20G Arrow Arterial Line Procedure: Vessel accessed with catheter over needle Dressing: Tegaderm Applied Ultrasound: Sterile probe cover and gel used Ultrasound Image Saved?: No Number of Attempts (See previous attempts in note section): 1 Procedure Tolerated: No Complications Procedure Outcome: Successful Performed By: Laureano Jasso
--- NOTE | 2023-10-18 22:31 | ROE_ITS ---
Date of service: 10/18/23 Time of Service: 22:31 Operative Note Operative Note DATE OF PROCEDURE: 10/18/23 PRE-OP DIAGNOSIS: Hemodynamic instability, suspected hemoperitoneum POST-OP DIAGNOSIS: other (Hemorrhagic shock with extraperitoneal hematoma) Hemoperitoneum PROCEDURE: Exploratory laparotomy, evacuation of hemoperitoneum. SURGEON: Karely Araujo ASSISTING SURGEON: Philip Gill DIRECTOR OF OFFICIATING: Eveline Negrete ANESTHESIA TYPE: General LMA/ETT Refer to Anesthesia Record ESTIMATED BLOOD LOSS: 2,000 PATHOLOGY: other (Placenta) Patient was transported to: ICU Patient's condition: critical Indications: Hemodynamic instability, suspected hemoperitoneum Findings: Approximately 2 L of old blood and clot intra-abdominal, and pelvic. Hemostatic uterine incision. Suspected right pelvic sidewall retroperitoneal hematoma. Procedure Description: I was called by my partner this evening after she had been notified to evaluate the patient for increasing abdominal pain, and hemodynamic instability. She was noted to have decreased urine output, increasing pain, and symptoms upon attempting to sit up or ambulate with increasing right shoulder pain, dizziness, lightheadedness. She had laboratory studies performed which preoperative hemoglobin was noted to be 12 and at that time approximately 8. In light of these factors, the decision was made to have her return to the operating suite for what was suspected to be a hemoperitoneum. Dr. Negrete performed a surgical consultation, and consenting of the patient and she was taken to the operating suite. OR crew and anesthesia were notified, blood bank was notified. She was taken to the OR and placed in the dorsal supine position she had a previous Reyes catheter from her section earlier in the morning. She had pneumatic compression stockings for DVT prophylaxis, she received 2 g of Ancef again for surgical site infection prophylaxis. She was given general anesthesia via endotracheal intubation after she was prepped and draped in the usual sterile fashion. Anesthesia managed her fluid and blood product resuscitation. After abdomen was draped, her previous surgical incision was opened and noted to have a small amount of clot. The fascial incision was then opened and a large, well organized thrombus was noted. The abdomen was cleared of approximately at that time 1500 cc of old blood, and clot. With careful and meticulous inspection of all areas including the uterine incision, retroperitoneal space, upper and mid abdomen there was noted to be only significant clot. All of the old blood and clot were then removed. The uterine incision was noted to be hemostatic. Due to concern of a right retroperitoneal hematoma Dr. Philip Gill, general surgery was called to evaluate and recommend further course of action. Please see his note for surgical exploration. In inspecting the uterine incision, the right apex seem to be contiguous with the base of the hematoma. The far lateral portion of the right uterine incision was oversewn with a single stitch. At this point the abdomen was packed for approximately 5 to 10 minutes packing removed and no areas of active bleeding were noted. Again upper abdomen, mid abdomen, retroperitoneal space, posterior cul-de-sac, anterior cul-de-sac were all inspected. Hematoma at the right side of the uterine incision, and retroperitoneum appeared hemostatic. In light of this fact, and no further active bleeding the decision was made to terminate the procedure. At this point the fascial incision was closed after all sponges and instrumentation were removed and counts were correct. Fascial incision was closed using 0 Vicryl suture in a running fashion. Subcutaneous tissue irrigated with copious amounts of normal saline and reapproximated with 3-0 Vicryl suture. The skin edge was then reapproximated with 4-0 undyed Monocryl and a Keila dressing was placed without difficulty. Sponge lap and needle counts were correct x 2 patient was extubated and taken to the intensive care unit for close observation. Intraoperative and postoperative findings discussed at length with patient's , and family. Opportunities for debriefing were offered. Complications: Hemoperitoneum EBL: Total of approximately 2000 cc of old blood and clot Fluids: 5 units of packed red blood cells, 2 units of fresh frozen plasma, 1 unit of cryoprecipitate, 2 doses of TXA, crystalloid per anesthesia Pathology: None
--- NOTE | 2023-10-18 23:15 | DI.RAD_ITS ---
Exam(s) XR PORTABLE CHEST AP POST LINE EXAM: XR PORTABLE CHEST AP POST LINE CLINICAL HISTORY: Right Subclavian Line placement TECHNIQUE: 2D digital imaging was performed of the chest. One image was obtained. An AP view was ob tained. COMPARISON: No exams were available for comparison FINDINGS: MEDIASTINUM: Normal. HEART: Normal. PULMONARY VASCULATURE: Normal. LUNGS: Clear. PLEURAL SPACE: No pleural effusion or pneumothorax. BONE:Within normal limits for the patient's age. OTHER FINDINGS:There is a right-sided catheter present. The tip of the catheter is seen in the regio n of the subclavian vessel. IMPRESSION: 1. No acute pulmonary findings. 2. The right subclavian catheter tip remains in the right subclavian vessel. DATA REPOSITORY: RADIATION DOSE DELIVERED:
--- NOTE | 2023-10-18 23:19 | PGE_ITS ---
Date of Service Date of service: 10/18/23 Time of Service: 23:19 Assessment and Plan Assessment and plan (1) Status post exploratory laparotomy: Status: Acute Assessment and plan: Postoperative day 0 status post return to the OR for evacuation of intra- abdominal, retroperitoneal hematoma. Status post 5 units of packed red blood cells, cryoprecipitate, fresh frozen plasma, calcium. Currently stable with stable vital signs. Laboratory studies CBC, BMP pending at 6 1 AM and 6 AM. Pain control as necessary. Will continue intensive care unit observation until assured stability in the postoperative period Subjective Subjective Interval history since last seen: Patient seen in the immediate postoperative period upon transfer to the ICU. She is alert, awake, her only complaint is that of some left lower quadrant discomfort. Vital signs are stable, urine output is brisk. Briefly the events of the day, and surgical interventions were discussed with the patient and time offered to debrief in the near future. Will continue to follow her closely. CBC, BMP pending at 1 AM, and 6 AM. Currently stable. Will continue to monitor. Objective Last Vital Signs Temp 98.1 F 10/18/23 22:38 Pulse 78 10/18/23 22:38 Resp 17 10/18/23 22:38 BP 174/74 H 10/18/23 22:38 Pulse Ox 97 10/18/23 22:38 Laboratory Results - last 24 hr 10/16/23 10/18/23 10/18/23 10:24 18:20 19:10 WBC 11.80 H 19.13 H RBC 4.24 2.87 L Hgb 12.2 8.3 L D Hct 35.9 L 24.7 L MCV 85 86 MCH 28.8 28.9 MCHC 34.0 33.6 RDW 13.6 13.4 Plt Count 247 227 MPV 11.8 H 12.0 H Immature Gran % 0.5 Neutrophils % 73.0 Lymphocytes % 18.7 Monocytes % 5.7 Eosinophils % 1.5 Basophils % 0.6 Nucleated RBC % 0.0 Absolute Neutrophils 8.61 H Absolute Lymphocytes 2.21 Absolute Monocytes 0.67 Absolute Eosinophils 0.18 Absolute Basophils 0.07 PT INR APTT ABG Sample Site ABG pH ABG pCO2 ABG pO2 ABG HCO3 ABG Total CO2 ABG O2 Saturation ABG Base Excess Sodium 130 L Potassium 4.0 Chloride 100 Carbon Dioxide 20.6 L Anion Gap 9.4 BUN 8 Creatinine 0.9 Est GFR (CKD-EPI 2020) 89.86 Glucose 188 H Calcium 7.9 L Total Bilirubin 0.4 AST 12 L ALT 25 Alkaline Phosphatase 97 Total Protein 5.2 L Albumin 2.0 L Patient ABO/Rh A Positive Cancelled Antibody Screen NEGATIVE Cancelled Crossmatch See Detail See Detail 10/18/23 20:35 WBC 16.14 H RBC 3.45 L Hgb 9.9 L Hct 29.2 L MCV 85 MCH 28.7 MCHC 33.9 RDW 15.0 H Plt Count 162 MPV 12.0 H Immature Gran % 0.9 Neutrophils % 81.8 Lymphocytes % 9.5 Monocytes % 7.5 Eosinophils % 0.1 Basophils % 0.2 Nucleated RBC % 0.0 Absolute Neutrophils 13.20 H Absolute Lymphocytes 1.53 Absolute Monocytes 1.21 H Absolute Eosinophils 0.02 Absolute Basophils 0.03 PT 10.3 INR 1.0 APTT 24.9 ABG Sample Site Unknown ABG pH 7.27 L ABG pCO2 44 ABG pO2 172 H ABG HCO3 20 L ABG Total CO2 ABG O2 Saturation > 99 H ABG Base Excess -7 L Sodium 131 L Potassium 5.2 H D Chloride 101 Carbon Dioxide 19.8 L Anion Gap 10.2 BUN 8 Creatinine 0.8 Est GFR (CKD-EPI 2020) 103.50 Glucose 172 H Calcium 7.9 L Total Bilirubin 0.3 AST 12 L ALT 19 Alkaline Phosphatase 73 Total Protein 4.2 L Albumin 1.6 L Patient ABO/Rh Antibody Screen Crossmatch Time Spent with Patient Time Spent with Patient: 25-34 minutes Time was spent: preparing to see the patient(eg.review tests), ordering medications,tests, procedures, referring, communicating with other health dog day care attendant and counseling the patient
[2023-10-18] MEDS: HYDROmorphone 2 MG/ML SYR 1 MG IVP (23:50)
[2023-10-19] VITALS (63 sets, daily range): BP systolic 94–135; BP diastolic 53–84; PULSE 56–113; RESP 12–27; TEMP 36.6–38; O2SAT 91–97
--- NOTE | 2023-10-19 00:07 | DI.VRAD_ITS ---
PROCEDURE INFORMATION: Exam: XR Chest Exam date and time: 10/18/2023 23:40 Age: 28 years old Clinical indication: Device placement; Other: RT subclavian line placement TECHNIQUE: Imaging protocol: Radiologic exam of the chest. Views: 1 view. COMPARISON: No relevant prior studies available. FINDINGS: Tubes, catheters and devices: The right subclavian catheter terminates in the region of the proximal subclavian artery and would likely need to be advanced at least 4-5 cm to reach the upper subclavian artery. Lungs: No consolidation. Pleural spaces: No pleural effusion. No pneumothorax. Heart/Mediastinum: No cardiomegaly. Bones/joints: No acute fracture. IMPRESSION: The right subclavian catheter terminates in the region of the proximal subclavian artery and would likely need to be advanced at least 4-5 cm to reach the upper subclavian artery. Dictated and Authenticated by: Christine Wilson MD. Ordering:JERILYN Romano MD
[2023-10-19 00:26] LABS: Abs Immature Grans 0.13 10^3/uL (0.0-0.06); HCT 32.7 % (36.0-46.0); HGB 11.4 g/dL (11.2-15.7); MCH 28.6 pg (27.0-33.0); MCHC 34.9 % (32.0-36.0); MCV 82 fL (80-95); MPV 11.8 fL (8.0-11.0); Platelet Count 159 10^3/uL (130-400); RBC 3.98 10^6/uL (3.93-5.22); RDW 14.7 % (11.7-14.6); RDW-SD 44.1 fL; WBC 18.94 10^3/uL (4.4-10.8)
[2023-10-19 00:34] LABS: Anion Gap 10.7 mmol/L (3-11); BUN 8 mg/dL (7-18); CO2 21.3 mmol/L (21.0-32.0); CREATININE 0.7 mg/dL (0.55-1.02); Calcium 8.8 mg/dL (8.5-10.1); Chloride 104 mmol/L (98-107); Estimated GFR 121.49 (mL/min/1.73m2); Glucose 152 mg/dL (74-106); Potassium 3.8 mmol/L (3.5-5.1); Sodium 136 mmol/L (136-145)
[2023-10-19 00:48] LABS: Absolute Eosinophil Count 0.95 10^3/uL (0.0-0.7); Absolute Lymphocyte Count 1.89 10^3/uL (1.2-3.4); Absolute Monocyte Count 0.95 10^3/uL (0.1-0.8); Absolute Neutrophil Count 15.15 10^3/uL (1.2-6.7); Diff Comment Manual Differential; RBC Morphology Normal
--- NOTE | 2023-10-19 01:57 | W.PC.ACHO ---
Registration Status: ADM IN Primary Language: Preferred Language: Irish (Last Reviewed 04/04/23 @ 09:53 by Katherine Bowers CNM) S/P scar revision S/P section History of bunionectomy of right great toe Most Recent Vital Signs Temperature 37.1 C 10/19/23 00:30 Temperature Source Temporal Artery Scan 10/18/23 23:20 Temperature Source Oral 10/18/23 18:53 Pulse 78 10/18/23 23:20 Pulse Rhythm Regular 10/18/23 11:15 Pulse 77 10/19/23 00:50 Respiratory Rate 20 10/19/23 00:50 Respiratory Effort Normal, Non-Labored 10/18/23 23:20 Respiratory Depth Normal 10/18/23 23:20 Respiratory Pattern Normal 10/18/23 23:20 Blood Pressure 162/64 H 10/18/23 23:20 Blood Pressure Mean 96 10/18/23 23:20 Blood Pressure Position Supine 10/18/23 23:20 Pulse Oximetry 96 10/19/23 00:50 Respiratory End-tidal CO2 10/18/23 22:38 Oxygen Delivery Method Room Air 10/18/23 23:20 Oxygen Flow Rate 0 10/18/23 23:20 Pain Level 6 10/18/23 23:50 Comment see captured vitals 10/19/23 01:00 Arterial Systolic 159 10/19/23 00:50 Arterial Diastolic 68 10/19/23 00:50 Arterial Mean 91 10/19/23 00:50 Allergies No Known Allergies Allergy (Verified 10/16/23 14:43) Active Medications Generic Name Dose Route Start Last Admin Trade Name Freq PRN Reason Stop Dose Admin Hydromorphone HCl 1 mg 10/18/23 23:18 10/18/23 23:50 Hydromorphone 2 Mg/Ml Syr IVP 1 mg Q2H PRN Administration Oxycodone/Acetaminophen 0 tab 10/18/23 08:43 10/18/23 18:02 Oxycodone 5 Mg/Acetaminophen 325 Mg Tab PO 1 tab Q4H PRN PRN Administration IV IV Catheter Type [Left Forearm Saline Lock ] IV Catheter Type [Right Hand] Saline Lock IV Catheter Gauge [Right 20 Radial] IV Catheter Gauge [Left 18 Forearm] IV Catheter Gauge [Right Hand] 18 Diagnostics 10/19/23 10/19/23 10/19/23 Range/Units 06:00 01:00 00:15 WBC Pending Cancelled 18.94 H (4.4-10.8) 10^3/uL RBC Pending Cancelled 3.98 (3.93-5.22) 10^6/uL Hgb Pending Cancelled 11.4 (11.2-15.7) g/dL Hct Pending Cancelled 32.7 L (36.0-46.0) % MCV Pending Cancelled 82 (80-95) fL MCH Pending Cancelled 28.6 (27.0-33.0) pg MCHC Pending Cancelled 34.9 (32.0-36.0) % RDW Pending Cancelled 14.7 H (11.7-14.6) % Plt Count Pending Cancelled 159 (130-400) 10^3/uL MPV Pending Cancelled 11.8 H (8.0-11.0) fL Immature Gran % Pending 0.0 Neutrophils % Pending 80.0 Lymphocytes % Pending 10.0 Monocytes % Pending 5.0 Eosinophils % Pending 5.0 Basophils % Pending 0.0 Nucleated RBC % 0.0 (0.0-0.3) % Absolute Neutrophils Pending 15.15 H (1.2-6.7) 10^3/uL Absolute Lymphocytes Pending 1.89 (1.2-3.4) 10^3/uL Absolute Monocytes Pending 0.95 H (0.1-0.8) 10^3/uL Absolute Eosinophils Pending 0.95 H (0.0-0.7) 10^3/uL Absolute Basophils Pending 0.00 (0.0-0.2) 10^3/uL RBC Morphology Normal PT (9.1-11.1) sec INR (0.9-1.1) APTT (23.6-32.8) sec ABG Sample Site ABG pH (7.35-7.45) ABG pCO2 (35-45) mmHg ABG pO2 (80-105) mmHg ABG HCO3 (22-26) mmol/L ABG Total CO2 (23-27) mmol/L ABG O2 Saturation (95-98) % ABG Base Excess (-2-3) mmol/L Sodium 136 (136-145) mmol/L Potassium 3.8 D (3.5-5.1) mmol/L Chloride 104 (98-107) mmol/L Carbon Dioxide 21.3 (21.0-32.0) mmol/L Anion Gap 10.7 (3-11) mmol/L BUN 8 (7-18) mg/dL Creatinine 0.7 (0.55-1.02) mg/dL Est GFR (CKD-EPI 2020) 121.49 (mL/min/1.73m2) Glucose 152 H (74-106) mg/dL Calcium 8.8 (8.5-10.1) mg/dL Total Bilirubin (0.2-1.0) mg/dL AST (15-37) U/L ALT (14-59) U/L Alkaline Phosphatase (46-116) U/L Total Protein (6.4-8.2) g/dL Albumin (3.4-5.0) g/dL Patient ABO/Rh Antibody Screen Crossmatch 10/18/23 10/18/23 10/18/23 Range/Units 20:35 19:10 18:20 WBC 16.14 H 19.13 H (4.4-10.8) 10^3/uL RBC 3.45 L 2.87 L (3.93-5.22) 10^6/uL Hgb 9.9 L 8.3 L D (11.2-15.7) g/dL Hct 29.2 L 24.7 L (36.0-46.0) % MCV 85 86 (80-95) fL MCH 28.7 28.9 (27.0-33.0) pg MCHC 33.9 33.6 (32.0-36.0) % RDW 15.0 H 13.4 (11.7-14.6) % Plt Count 162 227 (130-400) 10^3/uL MPV 12.0 H 12.0 H (8.0-11.0) fL Immature Gran % 0.9 Neutrophils % 81.8 Lymphocytes % 9.5 Monocytes % 7.5 Eosinophils % 0.1 Basophils % 0.2 Nucleated RBC % 0.0 (0.0-0.3) % Absolute Neutrophils 13.20 H (1.2-6.7) 10^3/uL Absolute Lymphocytes 1.53 (1.2-3.4) 10^3/uL Absolute Monocytes 1.21 H (0.1-0.8) 10^3/uL Absolute Eosinophils 0.02 (0.0-0.7) 10^3/uL Absolute Basophils 0.03 (0.0-0.2) 10^3/uL RBC Morphology PT 10.3 (9.1-11.1) sec INR 1.0 (0.9-1.1) APTT 24.9 (23.6-32.8) sec ABG Sample Site Unknown ABG pH 7.27 L (7.35-7.45) ABG pCO2 44 (35-45) mmHg ABG pO2 172 H (80-105) mmHg ABG HCO3 20 L (22-26) mmol/L ABG Total CO2 (23-27) mmol/L ABG O2 Saturation > 99 H (95-98) % ABG Base Excess -7 L (-2-3) mmol/L Sodium 131 L 130 L (136-145) mmol/L Potassium 5.2 H D 4.0 (3.5-5.1) mmol/L Chloride 101 100 (98-107) mmol/L Carbon Dioxide 19.8 L 20.6 L (21.0-32.0) mmol/L Anion Gap 10.2 9.4 (3-11) mmol/L BUN 8 8 (7-18) mg/dL Creatinine 0.8 0.9 (0.55-1.02) mg/dL Est GFR (CKD-EPI 2020) 103.50 89.86 (mL/min/1.73m2) Glucose 172 H 188 H (74-106) mg/dL Calcium 7.9 L 7.9 L (8.5-10.1) mg/dL Total Bilirubin 0.3 0.4 (0.2-1.0) mg/dL AST 12 L 12 L (15-37) U/L ALT 19 25 (14-59) U/L Alkaline Phosphatase 73 97 (46-116) U/L Total Protein 4.2 L 5.2 L (6.4-8.2) g/dL Albumin 1.6 L 2.0 L (3.4-5.0) g/dL Patient ABO/Rh Cancelled Antibody Screen Cancelled Crossmatch See Detail 10/16/23 Range/Units 10:24 WBC 11.80 H (4.4-10.8) 10^3/uL RBC 4.24 (3.93-5.22) 10^6/uL Hgb 12.2 (11.2-15.7) g/dL Hct 35.9 L (36.0-46.0) % MCV 85 (80-95) fL MCH 28.8 (27.0-33.0) pg MCHC 34.0 (32.0-36.0) % RDW 13.6 (11.7-14.6) % Plt Count 247 (130-400) 10^3/uL MPV 11.8 H (8.0-11.0) fL Immature Gran % 0.5 Neutrophils % 73.0 Lymphocytes % 18.7 Monocytes % 5.7 Eosinophils % 1.5 Basophils % 0.6 Nucleated RBC % 0.0 (0.0-0.3) % Absolute Neutrophils 8.61 H (1.2-6.7) 10^3/uL Absolute Lymphocytes 2.21 (1.2-3.4) 10^3/uL Absolute Monocytes 0.67 (0.1-0.8) 10^3/uL Absolute Eosinophils 0.18 (0.0-0.7) 10^3/uL Absolute Basophils 0.07 (0.0-0.2) 10^3/uL RBC Morphology PT (9.1-11.1) sec INR (0.9-1.1) APTT (23.6-32.8) sec ABG Sample Site ABG pH (7.35-7.45) ABG pCO2 (35-45) mmHg ABG pO2 (80-105) mmHg ABG HCO3 (22-26) mmol/L ABG Total CO2 (23-27) mmol/L ABG O2 Saturation (95-98) % ABG Base Excess (-2-3) mmol/L Sodium (136-145) mmol/L Potassium (3.5-5.1) mmol/L Chloride (98-107) mmol/L Carbon Dioxide (21.0-32.0) mmol/L Anion Gap (3-11) mmol/L BUN (7-18) mg/dL Creatinine (0.55-1.02) mg/dL Est GFR (CKD-EPI 2020) (mL/min/1.73m2) Glucose (74-106) mg/dL Calcium (8.5-10.1) mg/dL Total Bilirubin (0.2-1.0) mg/dL AST (15-37) U/L ALT (14-59) U/L Alkaline Phosphatase (46-116) U/L Total Protein (6.4-8.2) g/dL Albumin (3.4-5.0) g/dL Patient ABO/Rh A Positive Antibody Screen NEGATIVE Crossmatch See Detail Intake and Output - 24 Hour Total 08/16/23 10:10 thru 10/19/23 00:03 Intake Total 3420.000 Output Total 5600 Balance -2180.000 Weight 101.1 kg Intake: IV 3420.000 Output: Urine 3300 Estimated Blood Loss 2300 Other: Urine Color Pale Urine Appearance Cloudy Comment sandoval is patent Emesis Description None Urinary Catheter Urinary Catheter Date of 10/18/23 Insertion [Uretheral (Sandoval)] Time of insertion [Uretheral ( 07:56 Sandoval)] Falls Risk Assessment History of Falls No History 10/18/23 23:20 Contributing Factors Unstable 10/18/23 23:20 Ambulatory Aids Uses ambulatory device + 10/18/23 23:20 Tubes/Lines With any additional score 10/18/23 23:20 Gait Evaluation No gait disturbance 10/18/23 23:20 Cognition No cognitive impairment 10/18/23 23:20 Fall Total Score 53 10/18/23 23:20 Level of Risk High Risk 10/18/23 23:20 Problems (Last Reviewed 04/04/23 @ 09:53 by Katherine Bowers CNM) Status post exploratory laparotomy (Acute) Intra abdominal hemorrhage (Acute) Status post repeat low transverse section (Acute) Notes 10/18/23 21:16 Nursing Notes by Coral Sosa Addendum entered by Coral Sosa RN 10/18/23 21:30: 1600 Dr Foster notified of pt reporting nausea. Zofran ordered and given. No relief of shoulder pain and Blood pressure not improved after [address] Cano notified, Labs Ordered and drawn. MD responded to bedside at 1830 and decision to return to OR. OR notified at 1900 and Pt in PACU at 1913. Original Note: Nursing Note: 1500 pt attempted to stand at bedside but reported not feeling strong enough. Pt place supine and BPs cycled q 15min. 1600 pt began reporting shoulder pain. Initialized on 10/18/23 21:16 - END OF NOTE v v v v v v v v v Sending and/or Receiving Nurses: Please use comment section below to note any information pertinent to the patient hand-off not included above. Information / Comments: Report received from: César Cohn RN all questions answered: yes
[2023-10-19] MEDS: HYDROmorphone 2 MG/ML SYR 1 MG IVP (03:56)
[2023-10-19] MEDS: Acetaminophen 325 MG TAB 650 MG PO (03:58)
[2023-10-19 06:32] LABS: Abs Immature Grans 0.09 10^3/uL (0.0-0.06); Absolute Basophil Count 0.03 10^3/uL (0.0-0.2); Absolute Monocyte Count 0.89 10^3/uL (0.1-0.8); Basophils % 0.2; HCT 29.6 % (36.0-46.0); HGB 10.4 g/dL (11.2-15.7); Immature Grans % 0.6; Lymphocytes % 10.5; MCH 28.7 pg (27.0-33.0); MCHC 35.1 % (32.0-36.0); MCV 82 fL (80-95); MPV 11.9 fL (8.0-11.0); Monocytes % 5.5; Neutrophils % 83.2; Platelet Count 159 10^3/uL (130-400); RBC 3.62 10^6/uL (3.93-5.22); RDW 15.1 % (11.7-14.6); RDW-SD 44.8 fL; WBC 16.22 10^3/uL (4.4-10.8)
[2023-10-19] MEDS: oxyCODONE 5 mg/Acetaminophen 325 mg TAB PO ×3 (09:46→16:25)
--- NOTE | 2023-10-19 10:48 | PGE_ITS ---
Date of Service Date of service: 10/19/23 Time of Service: 10:50 Assessment and Plan Assessment and plan (1) Status post repeat low transverse section: Status: Acute (2) Status post exploratory laparotomy: Status: Acute Assessment and plan: Decrease central line, and lines as patient appears hemodynamically stable currently. Recheck CBC at noon. Increase activity and diet. Subjective Subjective Interval history since last seen: Patient seen and examined this morning, results and intraoperative findings again discussed at length. Support was given. Vital signs are stable. Blood count is normal. Would encourage decreasing her central line, and removing other peripheral lines if unnecessary. Will recheck a CBC around the noon hour. Urine output is adequate and appropriate. Increase diet, oral pain medication, and potential transfer to the center when assurance of hemodynamic stability Exam Const General: cooperative, healthy appearing, comfortable and no acute distress Nutritional Appearance: average body habitus Eyes General: appearance normal, both eyes and all related structures Neck Neck: normal visual inspection and supple Resp Effort & Inspection: normal respiratory effort, no audible wheezes and no cough Cardio Rate: regular rate Rhythm: regular rhythm GI Inspection: normal to inspection, non-distended and incision (Dressed with ervin in place) Objective Last Vital Signs Temp 98.8 F 10/19/23 04:05 Pulse 73 10/19/23 04:05 Resp 21 10/19/23 05:40 BP 126/60 10/19/23 04:05 Pulse Ox 94 10/19/23 05:40 Laboratory Results - last 24 hr 10/16/23 10/18/23 10/18/23 10:24 18:20 19:10 WBC 11.80 H 19.13 H RBC 4.24 2.87 L Hgb 12.2 8.3 L D Hct 35.9 L 24.7 L MCV 85 86 MCH 28.8 28.9 MCHC 34.0 33.6 RDW 13.6 13.4 Plt Count 247 227 MPV 11.8 H 12.0 H Immature Gran % 0.5 Neutrophils % 73.0 Lymphocytes % 18.7 Monocytes % 5.7 Eosinophils % 1.5 Basophils % 0.6 Nucleated RBC % 0.0 Absolute Neutrophils 8.61 H Absolute Lymphocytes 2.21 Absolute Monocytes 0.67 Absolute Eosinophils 0.18 Absolute Basophils 0.07 RBC Morphology PT INR APTT ABG Sample Site ABG pH ABG pCO2 ABG pO2 ABG HCO3 ABG Total CO2 ABG O2 Saturation ABG Base Excess Sodium 130 L Potassium 4.0 Chloride 100 Carbon Dioxide 20.6 L Anion Gap 9.4 BUN 8 Creatinine 0.9 Est GFR (CKD-EPI 2020) 89.86 Glucose 188 H Calcium 7.9 L Total Bilirubin 0.4 AST 12 L ALT 25 Alkaline Phosphatase 97 Total Protein 5.2 L Albumin 2.0 L Patient ABO/Rh A Positive Cancelled Antibody Screen NEGATIVE Cancelled Crossmatch See Detail See Detail 10/18/23 10/19/23 10/19/23 20:35 00:15 01:00 WBC 16.14 H 18.94 H Cancelled RBC 3.45 L 3.98 Cancelled Hgb 9.9 L 11.4 Cancelled Hct 29.2 L 32.7 L Cancelled MCV 85 82 Cancelled MCH 28.7 28.6 Cancelled MCHC 33.9 34.9 Cancelled RDW 15.0 H 14.7 H Cancelled Plt Count 162 159 Cancelled MPV 12.0 H 11.8 H Cancelled Immature Gran % 0.9 0.0 Neutrophils % 81.8 80.0 Lymphocytes % 9.5 10.0 Monocytes % 7.5 5.0 Eosinophils % 0.1 5.0 Basophils % 0.2 0.0 Nucleated RBC % 0.0 0.0 Absolute Neutrophils 13.20 H 15.15 H Absolute Lymphocytes 1.53 1.89 Absolute Monocytes 1.21 H 0.95 H Absolute Eosinophils 0.02 0.95 H Absolute Basophils 0.03 0.00 RBC Morphology Normal PT 10.3 INR 1.0 APTT 24.9 ABG Sample Site Unknown ABG pH 7.27 L ABG pCO2 44 ABG pO2 172 H ABG HCO3 20 L ABG Total CO2 ABG O2 Saturation > 99 H ABG Base Excess -7 L Sodium 131 L 136 Potassium 5.2 H D 3.8 D Chloride 101 104 Carbon Dioxide 19.8 L 21.3 Anion Gap 10.2 10.7 BUN 8 8 Creatinine 0.8 0.7 Est GFR (CKD-EPI 2020) 103.50 121.49 Glucose 172 H 152 H Calcium 7.9 L 8.8 Total Bilirubin 0.3 AST 12 L ALT 19 Alkaline Phosphatase 73 Total Protein 4.2 L Albumin 1.6 L Patient ABO/Rh Antibody Screen Crossmatch 10/19/23 05:40 WBC 16.22 H RBC 3.62 L Hgb 10.4 L Hct 29.6 L MCV 82 MCH 28.7 MCHC 35.1 RDW 15.1 H Plt Count 159 MPV 11.9 H Immature Gran % 0.6 Neutrophils % 83.2 Lymphocytes % 10.5 Monocytes % 5.5 Eosinophils % 0.0 Basophils % 0.2 Nucleated RBC % 0.0 Absolute Neutrophils 13.50 H Absolute Lymphocytes 1.70 Absolute Monocytes 0.89 H Absolute Eosinophils 0.00 Absolute Basophils 0.03 RBC Morphology PT INR APTT ABG Sample Site ABG pH ABG pCO2 ABG pO2 ABG HCO3 ABG Total CO2 ABG O2 Saturation ABG Base Excess Sodium Potassium Chloride Carbon Dioxide Anion Gap BUN Creatinine Est GFR (CKD-EPI 2020) Glucose Calcium Total Bilirubin AST ALT Alkaline Phosphatase Total Protein Albumin Patient ABO/Rh Antibody Screen Crossmatch Time Spent with Patient Time Spent with Patient: 35-49 minutes Time was spent: preparing to see the patient(eg.review tests), obtaining and/or reviewing separately [facility], ordering medications,tests, procedures, referring, communicating with other health skin care therapist, indepentently interpreting results and counseling the patient
[2023-10-19] MEDS: Bacitracin 1 PACKET 2 PACKET TP (11:25)
[2023-10-19 11:30] LABS: Abs Immature Grans 0.09 10^3/uL (0.0-0.06); Absolute Basophil Count 0.03 10^3/uL (0.0-0.2); Absolute Lymphocyte Count 2.45 10^3/uL (1.2-3.4); Absolute Monocyte Count 0.91 10^3/uL (0.1-0.8); Basophils % 0.2; Eosinophils % 0.1; HCT 29.3 % (36.0-46.0); HGB 10.3 g/dL (11.2-15.7); Immature Grans % 0.7; Lymphocytes % 17.8; MCH 28.7 pg (27.0-33.0); MCHC 35.2 % (32.0-36.0); MCV 82 fL (80-95); MPV 11.8 fL (8.0-11.0); Monocytes % 6.6; Neutrophils % 74.6; Platelet Count 164 10^3/uL (130-400); RBC 3.59 10^6/uL (3.93-5.22); RDW 15.2 % (11.7-14.6); RDW-SD 44.4 fL; WBC 13.74 10^3/uL (4.4-10.8)
[2023-10-19 11:38] LABS: Absolute Eosinophil Count 0.01 10^3/uL (0.0-0.7); Absolute Neutrophil Count 10.25 10^3/uL (1.2-6.7)
--- NOTE | 2023-10-19 11:53 | PGE_ITS ---
Date of Service Date of service: 10/19/23 Time of Service: 11:53 Assessment and Plan Assessment and plan (1) Intra abdominal hemorrhage: Status: Acute Assessment and plan: patient recovering well. 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 feels better. pain controlled. passing flatus. no sob, cp or dizziness. H/H stable. Exam GI Inspection: normal to inspection Other: appropriate post op tenderness. dressing with serosanginous drainage. + bowel sounds Objective Last Vital Signs Temp 98.8 F 10/19/23 04:05 Pulse 73 10/19/23 04:05 Resp 21 10/19/23 05:40 BP 126/60 10/19/23 04:05 Pulse Ox 94 10/19/23 05:40 Laboratory Results - last 24 hr 10/16/23 10/18/23 10/18/23 10:24 18:20 19:10 WBC 11.80 H 19.13 H RBC 4.24 2.87 L Hgb 12.2 8.3 L D Hct 35.9 L 24.7 L MCV 85 86 MCH 28.8 28.9 MCHC 34.0 33.6 RDW 13.6 13.4 Plt Count 247 227 MPV 11.8 H 12.0 H Immature Gran % 0.5 Neutrophils % 73.0 Lymphocytes % 18.7 Monocytes % 5.7 Eosinophils % 1.5 Basophils % 0.6 Nucleated RBC % 0.0 Absolute Neutrophils 8.61 H Absolute Lymphocytes 2.21 Absolute Monocytes 0.67 Absolute Eosinophils 0.18 Absolute Basophils 0.07 RBC Morphology PT INR APTT ABG Sample Site ABG pH ABG pCO2 ABG pO2 ABG HCO3 ABG Total CO2 ABG O2 Saturation ABG Base Excess Sodium 130 L Potassium 4.0 Chloride 100 Carbon Dioxide 20.6 L Anion Gap 9.4 BUN 8 Creatinine 0.9 Est GFR (CKD-EPI 2020) 89.86 Glucose 188 H Calcium 7.9 L Total Bilirubin 0.4 AST 12 L ALT 25 Alkaline Phosphatase 97 Total Protein 5.2 L Albumin 2.0 L Patient ABO/Rh A Positive Cancelled Antibody Screen NEGATIVE Cancelled Crossmatch See Detail See Detail 10/18/23 10/19/23 10/19/23 20:35 00:15 01:00 WBC 16.14 H 18.94 H Cancelled RBC 3.45 L 3.98 Cancelled Hgb 9.9 L 11.4 Cancelled Hct 29.2 L 32.7 L Cancelled MCV 85 82 Cancelled MCH 28.7 28.6 Cancelled MCHC 33.9 34.9 Cancelled RDW 15.0 H 14.7 H Cancelled Plt Count 162 159 Cancelled MPV 12.0 H 11.8 H Cancelled Immature Gran % 0.9 0.0 Neutrophils % 81.8 80.0 Lymphocytes % 9.5 10.0 Monocytes % 7.5 5.0 Eosinophils % 0.1 5.0 Basophils % 0.2 0.0 Nucleated RBC % 0.0 0.0 Absolute Neutrophils 13.20 H 15.15 H Absolute Lymphocytes 1.53 1.89 Absolute Monocytes 1.21 H 0.95 H Absolute Eosinophils 0.02 0.95 H Absolute Basophils 0.03 0.00 RBC Morphology Normal PT 10.3 INR 1.0 APTT 24.9 ABG Sample Site Unknown ABG pH 7.27 L ABG pCO2 44 ABG pO2 172 H ABG HCO3 20 L ABG Total CO2 ABG O2 Saturation > 99 H ABG Base Excess -7 L Sodium 131 L 136 Potassium 5.2 H D 3.8 D Chloride 101 104 Carbon Dioxide 19.8 L 21.3 Anion Gap 10.2 10.7 BUN 8 8 Creatinine 0.8 0.7 Est GFR (CKD-EPI 2020) 103.50 121.49 Glucose 172 H 152 H Calcium 7.9 L 8.8 Total Bilirubin 0.3 AST 12 L ALT 19 Alkaline Phosphatase 73 Total Protein 4.2 L Albumin 1.6 L Patient ABO/Rh Antibody Screen Crossmatch 10/19/23 10/19/23 05:40 11:20 WBC 16.22 H 13.74 H RBC 3.62 L 3.59 L Hgb 10.4 L 10.3 L Hct 29.6 L 29.3 L MCV 82 82 MCH 28.7 28.7 MCHC 35.1 35.2 RDW 15.1 H 15.2 H Plt Count 159 164 MPV 11.9 H 11.8 H Immature Gran % 0.6 0.7 Neutrophils % 83.2 74.6 Lymphocytes % 10.5 17.8 Monocytes % 5.5 6.6 Eosinophils % 0.0 0.1 Basophils % 0.2 0.2 Nucleated RBC % 0.0 0.0 Absolute Neutrophils 13.50 H 10.25 H Absolute Lymphocytes 1.70 2.45 Absolute Monocytes 0.89 H 0.91 H Absolute Eosinophils 0.00 0.01 Absolute Basophils 0.03 0.03 RBC Morphology PT INR APTT ABG Sample Site ABG pH ABG pCO2 ABG pO2 ABG HCO3 ABG Total CO2 ABG O2 Saturation ABG Base Excess Sodium Potassium Chloride Carbon Dioxide Anion Gap BUN Creatinine Est GFR (CKD-EPI 2020) Glucose Calcium Total Bilirubin AST ALT Alkaline Phosphatase Total Protein Albumin Patient ABO/Rh Antibody Screen Crossmatch Time Spent with Patient Time Spent with Patient: <25 minutes Time was spent: preparing to see the patient(eg.review tests), obtaining and/or reviewing separately otained hiistory and referring, communicating with other health healthcare administration internship
--- NOTE | 2023-10-19 13:13 | PHA.REVIEW2 ---
Pharmacy Admission Review Admission Clinical Review Admission Pharmacy Review: Status post exploratory laparotomy (Acute) Intra abdominal hemorrhage (Acute) Status post repeat low transverse section (Acute) No Known Allergies Allergy (Verified 10/16/23 14:43) Resuscitation Status Full Code Height 5 ft 4.17 in Weight 99.2 kg Comments Comments/Follow Ups: Post surgery observation (POD #1) Pharmacy Admission Review Renal Dosing Renal Dosing: BUN 8 mg/dL (7-18) 10/19/23 00:15 Creatinine 0.7 mg/dL (0.55-1.02) 10/19/23 00:15 Medications needing adjustments: Reviewed (CrCl 138.61 mL/min) Anticoagulation Anticoagulation: Hgb 10.3 g/dL (11.2-15.7) L 10/19/23 11:20 Hct 29.3 % (36.0-46.0) L 10/19/23 11:20 Plt Count 164 10^3/uL (130-400) 10/19/23 11:20 INR 1.0 (0.9-1.1) 10/18/23 20:35 Creatinine 0.7 mg/dL (0.55-1.02) 10/19/23 00:15 DVT Prophylaxis: Reviewed (SCDs, POD#1 from hemorrhage) Opiate Usage Evaluate Pain Scale/Pains Meds: Reviewed (PRN oxycodone and hydromorphone) Scheduled Bowel Reg ordered if on Opiates?: No Relevant Labs Relevant Labs: Sodium 136 mmol/L (136-145) 10/19/23 00:15 Potassium 3.8 mmol/L (3.5-5.1) D 10/19/23 00:15 Chloride 104 mmol/L (98-107) 10/19/23 00:15 Electrolytes, C-Reactive P, ESR: Reviewed (WBC 13.74 (decreased from 16.14), Hgb increased to 10.3, glucose 152) Cardiac Review BP, HR, EF%: Reviewed (HR WNL, BP 101/55) QTc Review QTc: Reviewed (No EKG on file) IV to PO Switch IV Medications: Reviewed Home Meds Home Med List reviewed: Reviewed Relevent Home Meds Not ordered & why?: ( done yesterday) Current Meds Current Medication Order Review: Reviewed Comments Comments/Follow Ups: Post surgery observation (POD #1)
--- NOTE | 2023-10-19 14:58 | W.ANESPOSTOP ---
Postoperative Evaluation Date, Time and Location Date Performed: 10/19/23 Time Performed: 14:59 Patient Location: Intensive Care Unit Vital Signs Most Recent Imported Vital Signs: Most Recent Vital Signs Temp Pulse Resp BP Pulse Ox 37.1 C 74 23 101/55 L 94 10/19/23 14:02 10/19/23 11:50 10/19/23 14:02 10/19/23 11:50 10/19/23 14:02 Most Recent Vital Signs Temp Pulse Resp BP Pulse Ox 36.7 C 76 18 116/54 L 97 10/18/23 06:26 10/18/23 09:48 10/18/23 06:26 10/18/23 09:37 10/18/23 09:48 Pain Score Most Recent Pain Score: Most Recent Pain Score Pain Level 4 10/19/23 07:30 Assessment Mental Status: Awake (Alert & Oriented to Patient Baseline) Airway and Respiratory Function: Patent airway with normal (patient baseline) respiratory exam Cardiovascular Function: Hemodynamically Stable Hydration Status: Adequately Hydrated Nausea & Vomiting: No Nausea or Vomiting Pain: Pain is tolerable per patient Peripheral Nerve Block: Patient did not receive a nerve block Postoperative Comments:: Introducer and art line are out, anesthesia events of last night discussed, no questions at this time.
--- NOTE | 2023-10-19 15:03 | W.PM.OBPNV1 ---
Date of service: 10/19/23 Time of Service: 15:03 Assessment and Plan Assessment and plan (1) Status post repeat low transverse section: Status: Acute Assessment and plan: Patient is postop day 1 status post repeat section along with return to the OR for exploratory laparotomy for evacuation of pelvic hematoma. She had approximately 2 L of blood and clot within her abdomen and no definitive source of the bleeding. She received the appropriate amount of packed red blood cells cryoprecipitate and fresh frozen plasma. She has a Reyes catheter in place with appropriate urine output. Her vital signs are stable. She has had her central line and arterial line removed. She remains with 2 large-bore IVs. She has been ambulatory without dizziness. Her pain is reasonably well-controlled. She will be transitioned from the intensive care unit to the center for ongoing postoperative and care. (2) Status post exploratory laparotomy: Status: Acute Exam Physical Exam Vital signs: Temp Pulse Resp BP Pulse Ox 98.8 F 74 23 101/55 L 94 10/19/23 14:02 10/19/23 11:50 10/19/23 14:02 10/19/23 11:50 10/19/23 14:02 Vital Signs Reviewed: Yes Narrative: Vital signs are stable. Urine output is appropriate Constitutional Constitutional: no acute distress, average body habitus and cooperative HEENT Exam HEENT Exam: Normal Neck Exam Neck Exam: Normal Respiratory Exam Respiratory Exam: Normal Cardiovascular Exam Cardiovascular Exam: Normal Abdominal Exam Comments: Soft, diffuse tenderness, ervin dressing in place. Fundal Exam Fundus: Below Umbilicus and Firm Extremities Exam Extremity Exam: Normal; negative Calf Tenderness Skin Exam Skin Exam: Normal Neurological Exam Neurological Exam: Normal Psychiatric Exam Psychiatric Exam: Normal Results Hemoglobin/Hematocrit: Hgb 10.3 g/dL (11.2-15.7) L 10/19/23 11:20 Hct 29.3 % (36.0-46.0) L 10/19/23 11:20 Abnormal Lab Findings: Abnormal Labs 10/16/23 10/18/23 10/18/23 10:24 18:20 19:10 WBC 11.80 H 19.13 H RBC 2.87 L Hgb 8.3 L D Hct 35.9 L 24.7 L RDW MPV 11.8 H 12.0 H Absolute Neutrophils 8.61 H Absolute Monocytes Absolute Eosinophils ABG pH ABG pO2 ABG HCO3 ABG O2 Saturation ABG Base Excess Sodium 130 L Potassium Carbon Dioxide 20.6 L Glucose 188 H Calcium 7.9 L AST 12 L Total Protein 5.2 L Albumin 2.0 L Crossmatch See Detail See Detail 10/18/23 10/19/23 10/19/23 20:35 00:15 05:40 WBC 16.14 H 18.94 H 16.22 H RBC 3.45 L 3.62 L Hgb 9.9 L 10.4 L Hct 29.2 L 32.7 L 29.6 L RDW 15.0 H 14.7 H 15.1 H MPV 12.0 H 11.8 H 11.9 H Absolute Neutrophils 13.20 H 15.15 H 13.50 H Absolute Monocytes 1.21 H 0.95 H 0.89 H Absolute Eosinophils 0.95 H ABG pH 7.27 L ABG pO2 172 H ABG HCO3 20 L ABG O2 Saturation > 99 H ABG Base Excess -7 L Sodium 131 L Potassium 5.2 H D Carbon Dioxide 19.8 L Glucose 172 H 152 H Calcium 7.9 L AST 12 L Total Protein 4.2 L Albumin 1.6 L Crossmatch 10/19/23 11:20 WBC 13.74 H RBC 3.59 L Hgb 10.3 L Hct 29.3 L RDW 15.2 H MPV 11.8 H Absolute Neutrophils 10.25 H Absolute Monocytes 0.91 H Absolute Eosinophils ABG pH ABG pO2 ABG HCO3 ABG O2 Saturation ABG Base Excess Sodium Potassium Carbon Dioxide Glucose Calcium AST Total Protein Albumin Crossmatch
[2023-10-19] MEDS: Metoclopramide 10 MG/2 ML VIAL IVP (16:25)
[2023-10-19] MEDS: Pantoprazole 40 MG TABCR PO (17:21)
[2023-10-19] MEDS: oxyCODONE 5 MG TAB PO (17:21)
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
[2023-10-20] VITALS (8 sets, daily range): BP systolic 116–133; BP diastolic 68–78; PULSE 56–89; RESP 14–18; TEMP 35.7–37.3; O2SAT 96–99
[2023-10-20] MEDS: oxyCODONE 5 MG TAB PO (02:19)
[2023-10-20 07:02] LABS: Abs Immature Grans 0.07 10^3/uL (0.0-0.06); Absolute Basophil Count 0.07 10^3/uL (0.0-0.2); Absolute Eosinophil Count 0.21 10^3/uL (0.0-0.7); Absolute Lymphocyte Count 2.67 10^3/uL (1.2-3.4); Absolute Monocyte Count 0.77 10^3/uL (0.1-0.8); Absolute Neutrophil Count 6.87 10^3/uL (1.2-6.7); Basophils % 0.7; HCT 28.4 % (36.0-46.0); HGB 9.8 g/dL (11.2-15.7); Immature Grans % 0.7; MCH 28.7 pg (27.0-33.0); MCHC 34.5 % (32.0-36.0); MCV 83 fL (80-95); MPV 11.5 fL (8.0-11.0); Monocytes % 7.2; Neutrophils % 64.4; Platelet Count 163 10^3/uL (130-400); RBC 3.41 10^6/uL (3.93-5.22); RDW 15.6 % (11.7-14.6); WBC 10.66 10^3/uL (4.4-10.8)
[2023-10-20] MEDS: Docusate Sodium 100 MG CAP PO ×2 (10:26→23:26)
[2023-10-20] MEDS: oxyCODONE 5 mg/Acetaminophen 325 mg TAB PO ×3 (10:27→23:26)
--- NOTE | 2023-10-20 13:20 | OBPPV_ITS ---
Date of service: 10/20/23 Time of Service: 13:20 Assessment and Plan Assessment and plan (1) Status post exploratory laparotomy: Status: Acute Assessment and plan: POD2. Pt recovering and bonding well with infant. She has chosen to formula feed. Her milk supply is currently not in and she has decided against pumping. Pain is well controlled. Plan is to assist OOB, sandoval out and have goal of ambulating around the room without assist by this afternoon. Will continue wound vac and plan to have her discharged to home with device. (2) Intra abdominal hemorrhage: Status: Acute (3) Status post repeat low transverse section: Status: Acute Subjective Subjective Interval history: POD2 rLTCS and return to OR for PP hemorrhage. s/p 5 units of intraop RBCs, 3 units of FFP, 1 unit of cryoprecipitate. Pt observed overnight in ICU. Stable VS and hemodynamic status. Transferred to POD1. Pt has changed to formula feeding. Has wound suction dressing in place. Sandoval in place this am. Patient comments: Pain well controlled, Tolerating diet and Flatus present Patient's Mood: improving as she is recovering. [place] baby status: Doing well, Bottle feeding well and Strong Bonding Observed [place] feeding status: Exclusively formula feeding Narrative: Pt reports being nervous about being discharged too soon. We discussed home of Monday10/22/23. She plans to continue to exclusively formula feed. Exam Physical Exam Vital signs: Temp Pulse Resp BP Pulse Ox 99.1 F 56 L 14 133/78 96 10/20/23 07:45 10/20/23 07:45 10/20/23 07:45 10/20/23 07:45 10/20/23 07:45 Vital Signs Reviewed: Yes Constitutional Constitutional: no acute distress HEENT Exam HEENT Exam: Normal Neck Exam Neck Exam: Normal Respiratory Exam Respiratory Exam: Normal Cardiovascular Exam Cardiovascular Exam: Normal Abdominal Exam Abdomen: Tender (wound vac in place. L lateral margin of incision more tender than R.) Fundal Exam Fundus: Below Umbilicus Rectal Exam Rectal Exam: Not Done Extremities Exam Extremity Exam: Normal Back/Spine/Pelvis Exam Back Exam: Normal Skin Exam Skin Exam: Normal Neurological Exam Neurological Exam: Normal Psychiatric Exam Psychiatric Exam: Normal Results Hemoglobin/Hematocrit: Hgb 9.8 g/dL (11.2-15.7) L 10/20/23 06:00 Hct 28.4 % (36.0-46.0) L 10/20/23 06:00 Abnormal Lab Findings: Abnormal Labs 10/16/23 10/18/23 10/18/23 10:24 18:20 19:10 WBC 11.80 H 19.13 H RBC 2.87 L Hgb 8.3 L D Hct 35.9 L 24.7 L RDW MPV 11.8 H 12.0 H Absolute Neutrophils 8.61 H Absolute Monocytes Absolute Eosinophils ABG pH ABG pO2 ABG HCO3 ABG O2 Saturation ABG Base Excess Sodium 130 L Potassium Carbon Dioxide 20.6 L Glucose 188 H Calcium 7.9 L AST 12 L Total Protein 5.2 L Albumin 2.0 L Crossmatch See Detail See Detail 10/18/23 10/19/23 10/19/23 20:35 00:15 05:40 WBC 16.14 H 18.94 H 16.22 H RBC 3.45 L 3.62 L Hgb 9.9 L 10.4 L Hct 29.2 L 32.7 L 29.6 L RDW 15.0 H 14.7 H 15.1 H MPV 12.0 H 11.8 H 11.9 H Absolute Neutrophils 13.20 H 15.15 H 13.50 H Absolute Monocytes 1.21 H 0.95 H 0.89 H Absolute Eosinophils 0.95 H ABG pH 7.27 L ABG pO2 172 H ABG HCO3 20 L ABG O2 Saturation > 99 H ABG Base Excess -7 L Sodium 131 L Potassium 5.2 H D Carbon Dioxide 19.8 L Glucose 172 H 152 H Calcium 7.9 L AST 12 L Total Protein 4.2 L Albumin 1.6 L Crossmatch 10/19/23 10/20/23 11:20 06:00 WBC 13.74 H RBC 3.59 L 3.41 L Hgb 10.3 L 9.8 L Hct 29.3 L 28.4 L RDW 15.2 H 15.6 H MPV 11.8 H 11.5 H Absolute Neutrophils 10.25 H 6.87 H Absolute Monocytes 0.91 H Absolute Eosinophils ABG pH ABG pO2 ABG HCO3 ABG O2 Saturation ABG Base Excess Sodium Potassium Carbon Dioxide Glucose Calcium AST Total Protein Albumin Crossmatch Hemorrrhage Note Note Note: see preop H&P from 10/18/23.
--- NOTE | 2023-10-20 17:25 | CMPROGNOTE_ITS ---
Date of service: 10/20/23 Time of Service: 17:26 Care Management Progress Note Progress Note Text Progress Note Text: JACQUE visited with Reshma today at the center. She was sitting up in bed, feeding baby [place], with her partner and her father in the room visiting. She stated that she is doing well today, and is very happy to be back upstairs with her baby and partner. She stated yesterday that she is agreeable to a visiting nurse upon discharge, as she had this service after her first child was born and found it to be helpful. She has a very supportive family, and did not express any further concerns. She reported that she expects to be discharged this w , likely Monday. She stated that she is not in a keith to discharge, but is looking forward to being home. SDOH(Care Management) Screening Will the Patient Participate in the Screening?: Yes Do you worry about having a steady place to live?: no Problems where you live: no known problems In the past 12 months, have you had to go without electric, gas, oil or water in your home?: no Have you or anyone in your house had to go without enough food to eat?: no Has lack of transportation kept you from medical appointments or from doing things needed for daily living?: no Has anyone in your support network made you feel unsafe for any reason?: no Social Determinants of Health Comments(SDOH Details): Wants [facility]
[2023-10-21 03:13] VITALS: BP 115/70; PULSE 71; RESP 16; TEMP 37; O2SAT 99
[2023-10-21 07:40] VITALS: BP 127/76; PULSE 88; RESP 14; TEMP 37
[2023-10-21] MEDS: Acetaminophen 325 MG TAB 650 MG PO ×2 (08:12→12:12)
[2023-10-21] MEDS: Docusate Sodium 100 MG CAP PO (08:12)
--- NOTE | 2023-10-21 14:51 | W.PM.OBDISCH ---
Date of service: 10/21/23 Time of Service: 14:51 DS: Diagnosis Discharge Diagnosis (1) Status post exploratory laparotomy: Status: Acute (2) Intra abdominal hemorrhage: Status: Acute (3) Status post repeat low transverse section: Status: Acute Discharge Plan Disposition Patient Disposition: Home Condition: Improving Discharge Details Reason For Visit: Delivery Admit Date/Time: 10/18/23 06:00 Admit Provider: Karely Araujo Attending Provider: Karely Araujo Primary Care Provider: Karely Araujo Hospital Course Hospital Course: G3P@ 28yo female who underwent an elective scheduled rLTCS on 10/18/23. The surgery was uncomplicated and she was transfered to [facility] after the surgery. Later on the day of surgery she complained of abdominal pain and had a change in her vital signs. Stat H/H 9.8/28.4. She returned to OR and underwent a laparotomy which revealed a hemoperitoneum with copious amount of clots. There was a right sided broad ligament, retroperitoneal hematoma, but no active bleeding. Approximately 2000cc of hemoperitoneum was evacuated. She received 5 units of intraop RBCs, 3 units of FFP, 1 unit of cryoprecipitate. . Pt observed overnight in ICU. Stable VS and hemodynamic status. Transferred to POD1 and expressed interest in discharge to home of POD3. 11/18/23 H/H 9.8/28.4 A Keila dressing applied to the Pfannenstiel skin incision and will remain in place until pt's postop visit approximately a week from surgery. Tylenol and Ibuprofen for pain at time of discharge. She will be contacted by [facility] on 10/23/23 and given a time for postop wound check. Home Meds and New Rx's Prescriptions: No Action Classic 28 mg iron- 800 mcg tablet 1 tab PO DAILY Discharge Instructions Additional Instructions: You may shower with the Keila dressing in place. You will be contacted on 10/23/23 about a time to return to [facility] for removal of the abdominal bandage. Tyenol 325mg every 6 hours for pain along with Ibuprofen 600mg every six hours as needed for pain Stand Alone Forms: Discharge Instruc Activity:: Activity as Tolerated Remove Dressings/Wound Care:: Do Not Remove Activity:: Activity as Tolerated Equipment/Supplies:: No Equipment Needed Diet:: As Tolerated Discharge Orders Discharge Orders: Discharge Order (Routine); Ordered 10/21/23 Ordered By: Eveline Negrete Discharge Data Discharge Physician: Eveline Negrete OB:DS Summary Summary Delivery Method: Repeat Episiotomy Description: None Laceration Description: None Laceration Extension: N/A complications OB DS: hematoma and transfusion Contraception Discussed Contraception Discussed: No, [place] Gender-Baby A: Male ([place]) weight: 6 lb 3 oz Disposition of Baby A: Home Status at Discharge Functional status at discharge: independent ambulation Overall status at discharge: patient is progressing back to baseline Mental Status: mental status grossly normal Speech and Movement: speech and movement normal Mood: congruent mood Affect: normal affect Time Spent with Patient providing and/or coordinating discharge services: Less than 30 minutes Specific discharge activities: return to [facility] 10/25/23 for removal of Keila device. Quality:SDOH Health Related Social Needs: No Data to Display Exam Physical Exam Vital signs: Temp Pulse Resp BP Pulse Ox 98.6 F 88 14 127/76 99 10/21/23 07:40 10/21/23 07:40 10/21/23 07:40 10/21/23 07:40 10/21/23 03:13 PFSH All Active Problems (Updated 10/18/23 @ 19:21 by Eveline Negrete MD) Status post exploratory laparotomy (Acute) Return to OR after section for hemoperitoneum with evacuation of clot. Apparent right sided broad ligament, retroperitoneal hematoma, no active bleeding. Intra abdominal hemorrhage (Acute) Status post repeat low transverse section (Acute) Rubella non-immune status, antepartum (Acute) (Acute) Surgical History History of bunionectomy of right great toe S/P section 02/22/2020. LT CS 4-second stage arrest. M. Jasson 7 pounds 3 ounces S/P scar revision 01/2021. Excision of sinus tract. Social History (Updated 10/21/23 @ 15:31 by Eveline Negrete MD) Smoking/Tobacco Use Status: Former Tobacco Use Quit Date: 09/28/19 Tobacco: How many years used: 5 Quit status: considering quitting Second Hand Exposure: Yes Counseling given: provider counseling, support program and counseling >3 minutes Smoking risk assessment performed?: Yes Alcohol Intake: current Alcohol Intake frequency: holidays/special occasions only Drug use: Never Household members: significant other, family, children and other Details: BF-Moris x8 years. S-Jasson. 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 Sexually active: Yes Do you think of yourself as: straight/heterosexual Helmet use: Yes Do you feel safe at home: Yes Do you feel safe in your relationship?: Yes Victim of physical abuse: No Victim of emotional abuse: No Victim of sexual abuse: No Female Reproductive History Menstrual Age of Menarche: 12 control method: other History History 3 Para 1 Hx # Term Pregnancies 1 Multiple births 0 Hx # Pregnancies 0 Ectopic pregnancies 0 AB induced 0 Hx Number of Living Children 1 AB spontaneous 1 Past Pregnancies Del. Date GA/Weeks # Preg Succ Route Wgt Sex Labor Lgth Anesthesia Location [facility] 02/22/20 41 No Yes 7 lb 3 oz Male [address] Lutz 08/29/22 4 No 10/18/23 39 No Yes 6 lb 3 oz KJ/aoc hemorrhage Delivery Date: 02/22/20 Last Updated by: Pepper Sewell IOL postdates, arrest of descent in 2nd stage with decels, persistent OP, Jasson Delivery Date: 08/29/22 Last Updated by: Katherine Bowers CNM SAB no complications Delivery Date: 10/18/23 Last Updated by: Eveline Negrete MD Return to OR day of surgery. Hemoperitoneum with evacuation of 2L of blood and clot. R retroperitoneal hematoma. [place]. DS: Data Vitals/I&O Vitals and I&O: Vital Signs Temperature 98.6 F 10/21/23 07:40 Temperature Source Oral 10/21/23 07:40 Temperature Source Oral 10/18/23 18:53 Pulse 88 10/21/23 07:40 Pulse Rhythm Regular 10/21/23 07:40 Pulse 79 10/19/23 15:31 Respiratory Rate 14 10/21/23 07:40 Respiratory Effort Normal, Non-Labored 10/19/23 14:02 Respiratory Depth Normal 10/20/23 19:30 Respiratory Pattern Normal 10/19/23 14:02 Blood Pressure 127/76 10/21/23 07:40 Blood Pressure Mean 94 10/19/23 15:31 Blood Pressure Position Supine 10/19/23 14:02 Pulse Oximetry 99 10/21/23 03:13 Respiratory End-tidal CO2 20 10/18/23 22:38 Oxygen Delivery Method Room Air 10/21/23 07:40 Oxygen Flow Rate 0 10/21/23 07:40 Pain Level 3 10/21/23 12:12 Comment see captured vitals 10/19/23 01:00 Arterial Systolic 162 10/19/23 11:00 Arterial Diastolic 75 10/19/23 11:00 Arterial Mean 96 10/19/23 11:00 Intake & Output 10/20/23 10/21/23 10/21/23 23:59 11:59 23:59 Intake Total 400 / 520 Output Total 700 / 1800 300 / 300 Balance -300 / -1280 -300 / -300 Intake: Oral 400 / 520 Output: Urine 700 / 1800 300 / 300 Other: Urine Color Yellow Urine Appearance Clear
[2023-10-21 15:50] VITALS: BP 131/72; PULSE 80; RESP 18; TEMP 36.6; O2SAT 97
== END 2023-10-21 17:15 | disposition home or self-care (01) | DRG 786 ==
LOC: OBS 09:39 → ICU 23:14 → OBS 10-19 16:12
PROVIDERS: Nurse Anesthetist, Certified Registered; Obstetrics & Gynecology Gynecology; Admitting Provider Obstetrics & Gynecology; PCP Obstetrics & Gynecology; Visit Provider Obstetrics & Gynecology
PROC: 10D00Z1 Extraction of Products of Conception, Low, Open Approach (ICD-10-PCS; CPT 59514; principal; 2023-10-18 07:30)
PROC: 0W3J0ZZ Control Bleeding in Pelvic Cavity, Open Approach (ICD-10-PCS; CPT 49000; principal; 2023-10-18 19:30)
DX: O34.211 Maternal care for low transverse scar from previous cesarean delivery (principal); K66.1 Hemoperitoneum; O75.1 Shock during or following labor and delivery; O72.2 Delayed and secondary postpartum hemorrhage; I97.620 Postprocedural hemorrhage of a circulatory system organ or structure following other procedure; Z37.0 Single live birth; Z3A.39 39 weeks gestation of pregnancy; Z28.39 Other underimmunization status; Z87.891 Personal history of nicotine dependence; O90.2 Hematoma of obstetric wound; O43.893 Other placental disorders, third trimester
CPT/HCPCS: 49002; 59514; 35840; 36415; 36556; 71045; 80048; 80053; 82805; 85027; 86850; 86900; 86901; 86920; 86945; 85025; 85610; 85730; 87624; 88307; 88361; J0131; J0330; J0456; J0665; J0690; J1100; J1170; J1885; J2250; J2274; J2371; J2405; J2704; J2765; J3010; J3490; P9012; P9016; P9059

== ENCOUNTER 2024-03-04 11:58 | Emergency (ER) | payer MEDICAID, SELFPAY ==
[2024-03-04 12:03] VITALS: BP 133/48; PULSE 80; RESP 16; TEMP 36.6; O2SAT 98
[2024-03-04 13:23] VITALS: BP 105/68; PULSE 80; RESP 20
== END 2024-03-04 14:08 | disposition left against medical advice (07) ==
LOC: ER 12:31
PROVIDERS: Emergency Provider Emergency Medicine; PCP Obstetrics & Gynecology
DX: Z53.21 Procedure and treatment not carried out due to patient leaving prior to being seen by health care provider (principal)

== ENCOUNTER 2024-05-13 04:23 | Outpatient (CLI) | payer MEDICAID, SELFPAY ==
[2024-05-13 14:02] LABS: TSH (W/Ref FT4) 1.46 uIU/mL (0.36-3.74)
== END 2024-05-13 04:24 | disposition home or self-care (01) ==
LOC: LBO 04:23
PROVIDERS: PCP Nurse Practitioner Family; Referring Provider Nurse Practitioner Family; Visit Provider Nurse Practitioner Family
DX: F43.23 Adjustment disorder with mixed anxiety and depressed mood (principal)
CPT/HCPCS: 36415; 84443

== ENCOUNTER 2025-01-15 03:04 | Outpatient (CLI) | payer MEDICAID, SELFPAY ==
--- NOTE | 2025-01-16 12:57 | W.NUTRFU ---
Date of service: 01/15/25 Time of Service: 16:00 Nutrition Note NOTE: Sheri referred to nutrition visit today for help with weight mgt. She has been struggling and frustrated with not seeing progress. She states her provider told her to aim for 100g protein per day. I supported this and suggested this should be minimum goal, but optimally would suggest 100-142g per day with a good 30-50 grams coming as early as possible after waking (within an hour ideally). No food allergies reported. No nutrition supplements currently - suggested multivitamin/mineral and an additional 2000IU vitamin D3 per day. She reports she can be a stress eater or a bored eater. She also tends to graze instead of having set eating pattern. I highlighted the protein goal and included a fiber goal of at least 30g fiber per day and also stressed stopping at 19g added sugar per day. We looked at her eating habits and made recommendations for 3 meals and 0-2 planned snacks per day and avoid grazing. discussed food environment and setting things up so when she's bored there are healthy things available and keep the processed foods out of the house as much as possible. We reviewed sample menus that meet the criteria we discussed (1900 kcals, 190 total carbs, 142 protein and 64g fat with 19 g added sugar limit and 30g fiber minimum. We looked at how these menus can be revised according to her food budget, preferences etc... Encouraged stress mgt habits that can help mitigate cravings and also increased activity as activity is there but scheduled exercise needs improvement. Gave sheri my card to contact if needing/desiring follow up appt or needs any more resources to help her meet her goals., Time Spent in Nutritional Counseling and Treatment: 25 min
== END 2025-01-15 03:05 | disposition home or self-care (01) ==
LOC: DS 03:04
PROVIDERS: PCP Nurse Practitioner Family; Visit Provider Dietitian, Registered
DX: E66.9 Obesity, unspecified (principal)
CPT/HCPCS: 123; 97802; 00123